=== PATIENT | female | born 1970 | race African-American/Black ===

== ENCOUNTER 2018-07-19 14:57 | Observation (INO) ==
[2018-07-19 18:08] LABS: Basophils % 0.4 % (0.0-0.8); Eosinophils # 0.1 10*3/uL (0.0-0.87); Eosinophils % 0.9 % (0.00-10.9); Hematocrit 46.3 VOL% (35.7-47.0); Hemoglobin 15.8 GM/DL (12.0-16.0); Immature Granulocytes % 0.5 %; Immature Granulocytes Absolute 0.03 #; Lymphocytes # 1.9 10*3/uL (1.4-4.0); Mean Corpuscular HGB Conc 34.1 GM/DL (32-36); Mean Corpuscular Volume 88.2 FL (87-102); Mean Platelet Volume 9.7 FL (9.6-12.0); Monocytes % 12.3 % (1.7-12.7); Neutrophils % 51.9 % (38.7-73.9); Platelet Count 210 T/CUMM (130-400); Red Blood Count 5.25 MC/CUMM (3.8-5.5); Red Cell Distribution Width 13.7 % (9.3-17.3); White Blood Count 5.6 T/CUMM (4-12)
[2018-07-19] MEDS ORDERED: LABETALOL 20 MG/4 ML SYRINGE IV STA ×2 (18:21→19:40)
[2018-07-19] MEDS ORDERED: ASPIRIN 325 MG TABLET PO STA (18:21)
[2018-07-19 18:22] LABS: PT Patient Result 11.2 SECS
[2018-07-19 18:40] LABS: Alanine Aminotransferase 64 U/L (13-56); Albumin 3.5 G/DL (3.4-5.0); Alkaline Phosphatase 117 U/L (45-117); Aspartate Amino Transferase 82 U/L (0-37); Blood Urea Nitrogen 3 MG/DL (7-18); Calcium 9.4 MG/DL (8.5-10.1); Glucose 313 MG/DL (74-106); Osmolality,Calculated 285.5 MOS/KG (273-304); Total Protein 8.2 G/DL (6.4-8.3); Troponin I < 0.015 NG/ML (0.00-0.045)
[2018-07-19 19:32] LABS: Apearance,Urine CLEAR (Clear); Bilirubin,Urine Negative (Negative); Blood, Urine Negative (Negative); Glucose,Urine (UA) >=500 mg/dL (Negative); Ketones,Urine 5 mg/dL (Negative); Nitrite,Urine Negative (Negative); Protein,Urine Negative; RBC,Urine 3 /HPF (0-4); Squamous Epithelial Cell,Urine Occasional /HPF (0-10); Urine Color Yellow (Yellow); Urine Specific Gravity 1.038 (1.001-1.035); Urine Urobilinogen < 2.0 EU/DL (0.2-1.0); WBC,Urine 2 /HPF (0-6)
[2018-07-19 19:39] LABS: Barbiturates Screen,Urine Negative (Negative); Benzodiazepines Screen,Urine Negative (Negative); Cannabinoid Screen,Urine Negative (Negative); Opiate Screen,Urine Positive (Negative); Phencyclidine Screen,Urine Negative (Negative)
[2018-07-19] MEDS ORDERED: MAGNESIUM SULF RIDER 2 GM in PREMIX 1 EACH IV STA (19:57)
[2018-07-19] MEDS ORDERED: guaiFENesin/DM ER 600-30 MG TABLET PO PRN (20:42)
[2018-07-19] MEDS ORDERED: NICOTINE 21 MG/24 HR PATCH TRANSDERM PRN (20:42)
[2018-07-19] MEDS ORDERED: GLUCAGON 1 MG VIAL IM PRN (20:42)
[2018-07-19] MEDS ORDERED: ONDANSETRON 4 MG/2 ML VIAL IV PRN (20:42)
[2018-07-19] MEDS ORDERED: diphenhydrAMINE CAP 25 MG CAPSULE PO PRN (20:42)
[2018-07-19] MEDS ORDERED: BISACODYL 5 MG TABLET PO PRN (20:42)
[2018-07-19] MEDS ORDERED: DEXTROSE 50% 25 GM/50 ML SYRINGE IV PRN (20:42)
[2018-07-19] MEDS ORDERED: PROMETHAZINE 25 MG/1 ML VIAL IM PRN (20:42)
[2018-07-19] MEDS ORDERED: MORPHINE 4 MG/1 ML VIAL IV PRN (20:42)
[2018-07-19] MEDS ORDERED: traZODone 50 MG TABLET PO PRN (20:42)
[2018-07-19] MEDS ORDERED: ACETAMINOPHEN 325 MG TABLET PO PRN (20:42)
[2018-07-19] MEDS ORDERED: MECLIZINE 25 MG TABLET PO PRN (20:47)
[2018-07-19] MEDS ORDERED: MAGNESIUM SULF RIDER 4 GM in PREMIX 1 EACH IV PRN (20:57)
[2018-07-19] MEDS ORDERED: METOPROLOL TARTRATE 5 MG/5 ML VIAL IV STA (20:57)
[2018-07-19] MEDS ORDERED: MAGNESIUM SULF RIDER 2 GM in PREMIX 1 EACH IV PRN (20:57)
[2018-07-19] MEDS ORDERED: METOPROLOL TARTRATE 5 MG/5 ML VIAL IV ONE ×2 (21:20)
[2018-07-19 21:31] LABS: Risk Ratio 4.15; Thyroid Stimulating Hormone 0.447 uIU/ml (0.358-3.74); VLDL CHOLESTEROL 39.4 MG/DL
[2018-07-19 22:04] LABS: Albumin 3.5 G/DL (3.4-5.0); Bilirubin,Direct 0.16 MG/DL (0.0-0.20); Bilirubin,Indirect 0.2 MG/DL (0.0-1.0); Bilirubin,Total 0.4 MG/DL (0.2-1.0); Total Protein 8.3 G/DL (6.4-8.3)
[2018-07-19] MEDS ORDERED: PANTOPRAZOLE 40 MG VIAL IV ONE (22:22)
[2018-07-19] MEDS: ENOXAPARIN 40 MG/0.4 ML SYRINGE SUBCUT SCH (22:54)
[2018-07-19] MEDS: ATORVASTATIN 40 MG TABLET PO SCH (22:54)
[2018-07-19] MEDS: hydrALAZINE 20 MG/1 ML VIAL IV PRN (23:00)
[2018-07-20 04:52] LABS: Basophils % 0.6 % (0.0-0.8); Eosinophils % 0.6 % (0.00-10.9); Hematocrit 41.3 VOL% (35.7-47.0); Hemoglobin 14.6 GM/DL (12.0-16.0); Immature Granulocytes % 0.4 %; Immature Granulocytes Absolute 0.02 #; Lymphocytes % 41.1 % (21.3-54.2); Mean Corpuscular HGB Conc 35.4 GM/DL (32-36); Mean Corpuscular Volume 87.9 FL (87-102); Mean Platelet Volume 10.6 FL (9.6-12.0); Monocytes % 14.1 % (1.7-12.7); Neutrophils % 43.2 % (38.7-73.9); Platelet Count 196 T/CUMM (130-400); Red Cell Distribution Width 13.4 % (9.3-17.3); White Blood Count 4.8 T/CUMM (4-12)
[2018-07-20] MEDS: INSULIN REGULAR 100 UNIT/ML SUBCUT SCH ×4 (05:04→17:31)
[2018-07-20 05:18] LABS: Albumin 2.8 G/DL (3.4-5.0); Bilirubin,Total 0.8 MG/DL (0.2-1.0); Calcium 8.6 MG/DL (8.5-10.1); Osmolality,Calculated 287.7 MOS/KG (273-304); Total Protein 6.9 G/DL (6.4-8.3)
[2018-07-20] MEDS: POTASSIUM CHLORIDE 20 MEQ TABLET PO PRN ×3 (08:01→14:55)
[2018-07-20] MEDS: PANTOPRAZOLE 40 MG TABLET PO SCH (09:10)
[2018-07-20] MEDS: ASPIRIN 325 MG TABLET PO SCH (09:10)
[2018-07-20] MEDS: hydrALAZINE 20 MG/1 ML VIAL IV PRN ×2 (09:32→12:45)
[2018-07-20] MEDS ORDERED: sitaGLIPtin 25 MG TABLET PO SCH (12:16)
[2018-07-20] MEDS ORDERED: METOPROLOL TARTRATE 25 MG TABLET PO ONE (13:43)
[2018-07-20] MEDS ORDERED: LISINOPRIL 20 MG TABLET PO SCH (14:00)
[2018-07-20 14:17] LABS: Troponin I < 0.015 NG/ML (0.00-0.045)
[2018-07-20] MEDS ORDERED: hydroCHLOROthiazide 12.5 MG CAPSULE PO SCH (14:35)
[2018-07-20] MEDS: SPIRONOLACTONE 25 MG TABLET PO SCH ×2 (14:53→21:10)
[2018-07-20] MEDS: FLUCONAZOLE 200 MG TABLET PO SCH (14:55)
[2018-07-20 15:17] LABS: Hepatitis B Core IgM Quant < 0.05 Index; Hepatitis B Surface Ag Quant < 0.10 Index; Hepatitis B Surface Ag Result Negative (Negative); Hepatitis C Virus Ab Quant 0.05 Index; Hepatitis C Virus Ab Result Negative (Negative)
[2018-07-20] MEDS: NYSTATIN CREAM 15 GM TUBE TOP SCH ×2 (16:14→21:10)
[2018-07-20 16:32] LABS: Troponin I < 0.015 NG/ML (0.00-0.045)
[2018-07-20] MEDS: glipiZIDE 5 MG TABLET PO SCH (17:30)
[2018-07-20] MEDS: metFORMIN 500 MG TABLET PO SCH (17:30)
[2018-07-20] MEDS: ENOXAPARIN 40 MG/0.4 ML SYRINGE SUBCUT SCH (21:10)
[2018-07-20] MEDS: ATORVASTATIN 40 MG TABLET PO SCH (21:10)
[2018-07-21] MEDS: INSULIN REGULAR 100 UNIT/ML SUBCUT SCH ×3 (00:26→11:48)
[2018-07-21 04:53] LABS: Basophils % 0.4 % (0.0-0.8); Eosinophils # 0.1 10*3/uL (0.0-0.87); Hematocrit 43.4 VOL% (35.7-47.0); Hemoglobin 14.4 GM/DL (12.0-16.0); Immature Granulocytes % 0.4 %; Immature Granulocytes Absolute 0.02 #; Mean Corpuscular HGB Conc 33.2 GM/DL (32-36); Mean Corpuscular Volume 90.4 FL (87-102); Monocytes % 11.4 % (1.7-12.7); Neutrophils % 48.8 % (38.7-73.9); Platelet Count 197 T/CUMM (130-400); Red Cell Distribution Width 13.6 % (9.3-17.3); White Blood Count 5.2 T/CUMM (4-12)
[2018-07-21 05:24] LABS: Calcium 8.6 MG/DL (8.5-10.1); Osmolality,Calculated 273.8 MOS/KG (273-304)
[2018-07-21] MEDS: POTASSIUM CHLORIDE 20 MEQ TABLET PO PRN (07:05)
[2018-07-21] MEDS: metFORMIN 500 MG TABLET PO SCH (07:55)
[2018-07-21] MEDS: POTASSIUM CHLORIDE 20 MEQ TABLET PO SCH ×2 (07:56→10:53)
[2018-07-21] MEDS: glipiZIDE 5 MG TABLET PO SCH (07:56)
[2018-07-21] MEDS: PANTOPRAZOLE 40 MG TABLET PO SCH (08:00)
[2018-07-21] MEDS: FLUCONAZOLE 200 MG TABLET PO SCH (08:00)
[2018-07-21] MEDS: ASPIRIN 325 MG TABLET PO SCH (08:00)
[2018-07-21] MEDS: SPIRONOLACTONE 25 MG TABLET PO SCH (08:00)
[2018-07-21] MEDS: NYSTATIN CREAM 15 GM TUBE TOP SCH (08:01)
[2018-07-21] MEDS ORDERED: METOPROLOL TARTRATE 25 MG TABLET PO SCH (09:00)
[2018-07-21 12:44] VITALS: BP 136/74
[2018-07-21] MEDS ORDERED: LISINOPRIL 20 MG TABLET PO SCH (13:30)
== END 2018-07-21 16:02 | disposition home or self-care (01) ==
LOC: N.ED 14:57 → N.EDINP 14:57 → SUATTDRO 20:42 → N.TELEN 21:22
PROVIDERS: ADMIT Internal Medicine; ATTEND Internal Medicine Cardiovascular Disease

== ENCOUNTER 2018-10-26 19:35 | Observation (INO) ==
[2018-10-26] MEDS ORDERED: hydrALAZINE 20 MG/1 ML VIAL IV STA ×2 (19:59→21:20)
[2018-10-26 20:11] LABS: Basophils % 0.4 % (0.0-0.8); Eosinophils % 0.4 % (0.00-10.9); Hematocrit 44.5 VOL% (35.7-47.0); Hemoglobin 15.4 GM/DL (12.0-16.0); Immature Granulocytes % 0.4 %; Immature Granulocytes Absolute 0.02 #; Lymphocytes # 1.7 10*3/uL (1.4-4.0); Lymphocytes % 31.2 % (21.3-54.2); Mean Corpuscular HGB Conc 34.6 GM/DL (32-36); Mean Corpuscular Volume 87.6 FL (87-102); Mean Platelet Volume 9.5 FL (9.6-12.0); Monocytes % 10.1 % (1.7-12.7); Neutrophils % 57.5 % (38.7-73.9); Platelet Count 223 T/CUMM (130-400); Red Blood Count 5.08 MC/CUMM (3.8-5.5); Red Cell Distribution Width 14.5 % (9.3-17.3); White Blood Count 5.5 T/CUMM (4-12)
[2018-10-26 20:27] LABS: Alanine Aminotransferase 133 U/L (13-56); Alkaline Phosphatase 117 U/L (45-117); Aspartate Amino Transferase 170 U/L (0-37); Blood Urea Nitrogen 7 MG/DL (7-18); Calcium 8.3 MG/DL (8.5-10.1); Glucose 244 MG/DL (74-106); Osmolality,Calculated 284.4 MOS/KG (273-304); Total Protein 7.7 G/DL (6.4-8.3); Troponin I < 0.015 NG/ML (0.00-0.045)
[2018-10-26 20:48] LABS: Apearance,Urine Slightly Hazy (Clear); Bilirubin,Urine Negative (Negative); Blood, Urine Negative (Negative); Glucose,Urine (UA) >=500 mg/dL (Negative); Ketones,Urine 80 mg/dL (Negative); Mucus,Urine Many /LPF (Occasional); Nitrite,Urine Negative (Negative); Protein,Urine 30 MG/DL; RBC,Urine 5 /HPF (0-4); Squamous Epithelial Cell,Urine Occasional /HPF (0-10); Urine Specific Gravity 1.031 (1.001-1.035); WBC,Urine 16 /HPF (0-6)
[2018-10-26 20:49] LABS: Urine Color Dark yellow (Yellow)
[2018-10-26 20:53] LABS: Barbiturates Screen,Urine Negative (Negative); Benzodiazepines Screen,Urine Negative (Negative); Cannabinoid Screen,Urine Negative (Negative); Opiate Screen,Urine Positive (Negative); Phencyclidine Screen,Urine Negative (Negative)
[2018-10-26] MEDS ORDERED: SODIUM CHLORIDE 0.9% 1,000 ML IV STA (21:28)
[2018-10-26] MEDS ORDERED: MAGNESIUM SULF RIDER 2 GM in PREMIX 1 EACH IV STA (21:28)
[2018-10-26] MEDS ORDERED: cefTRIAXone 1,000 MG in SODIUM CHLORIDE 0.9% 100 ML IV STA (21:29)
[2018-10-26] MEDS ORDERED: traZODone 50 MG TABLET PO PRN (21:54)
[2018-10-26] MEDS ORDERED: ONDANSETRON 4 MG/2 ML VIAL IV PRN (21:54)
[2018-10-26] MEDS ORDERED: GLUCAGON 1 MG VIAL IM PRN (22:11)
[2018-10-26] MEDS ORDERED: DEXTROSE 50% 25 GM/50 ML VIAL IV PRN (22:11)
[2018-10-27] MEDS: ACETAMINOPHEN 325 MG TABLET PO PRN ×3 (00:19→14:39)
[2018-10-27] MEDS: SODIUM CHLOR 0.9% KCL 40 MEQ 40 MEQ/1,000 ML BAG IV SCH ×3 (00:20→17:18)
[2018-10-27] MEDS: DILTIAZEM 60 MG TABLET PO SCH ×3 (00:30→22:17)
[2018-10-27 01:27] LABS: Calcium 8.3 MG/DL (8.5-10.1); Osmolality,Calculated 284.4 MOS/KG (273-304)
[2018-10-27 06:35] LABS: Basophils % 0.6 % (0.0-0.8); Eosinophils % 0.6 % (0.00-10.9); Hemoglobin 13.9 GM/DL (12.0-16.0); Immature Granulocytes % 0.9 %; Immature Granulocytes Absolute 0.05 #; Lymphocytes # 1.9 10*3/uL (1.4-4.0); Lymphocytes % 35.9 % (21.3-54.2); Mean Corpuscular HGB Conc 33.9 GM/DL (32-36); Mean Corpuscular Volume 87.8 FL (87-102); Mean Platelet Volume 9.5 FL (9.6-12.0); Monocytes % 11.8 % (1.7-12.7); Neutrophils % 50.2 % (38.7-73.9); Platelet Count 212 T/CUMM (130-400); Red Blood Count 4.67 MC/CUMM (3.8-5.5); Red Cell Distribution Width 14.6 % (9.3-17.3); White Blood Count 5.4 T/CUMM (4-12)
[2018-10-27] MEDS: ALUMINUM/MAGNES/SIMETH MAX STR 30 ML UDCUP PO PRN (09:07)
[2018-10-27] MEDS: PANTOPRAZOLE 40 MG TABLET PO SCH (09:07)
[2018-10-27] MEDS: ENOXAPARIN 40 MG/0.4 ML SYRINGE SUBCUT SCH (09:07)
[2018-10-27] MEDS: LOSARTAN 25 MG TABLET PO SCH (09:07)
[2018-10-27] MEDS: MAGNESIUM OXIDE 400 MG TABLET PO SCH ×2 (09:07→21:51)
[2018-10-27] MEDS: THIAMINE 100 MG TABLET PO SCH (09:10)
[2018-10-27] MEDS: INSULIN REGULAR 100 UNIT/ML SUBCUT SCH ×4 (09:10→21:50)
[2018-10-27] MEDS: METOPROLOL TARTRATE 50 MG TABLET PO SCH ×2 (09:10→21:51)
[2018-10-27] MEDS ORDERED: POTASSIUM CHLORIDE 20 MEQ TABLET PO ONE (12:31)
[2018-10-27] MEDS: amLODIPine 10 MG TABLET PO SCH (14:37)
[2018-10-27] MEDS: cefTRIAXone 1,000 MG in SYRINGE 1 EACH IV SCH (21:49)
[2018-10-27] MEDS: LORazepam 2 MG/1 ML VIAL IV PRN (22:13)
[2018-10-28] MEDS: SODIUM CHLOR 0.9% KCL 40 MEQ 40 MEQ/1,000 ML BAG IV SCH ×2 (01:40→09:50)
[2018-10-28 06:18] LABS: Calcium 7.4 MG/DL (8.5-10.1)
[2018-10-28] MEDS: MAGNESIUM OXIDE 400 MG TABLET PO SCH (09:49)
[2018-10-28] MEDS: METOPROLOL TARTRATE 50 MG TABLET PO SCH ×2 (09:49→21:17)
[2018-10-28] MEDS: DILTIAZEM 60 MG TABLET PO SCH ×2 (09:49→21:50)
[2018-10-28] MEDS: LOSARTAN 25 MG TABLET PO SCH (09:49)
[2018-10-28] MEDS: THIAMINE 100 MG TABLET PO SCH (09:49)
[2018-10-28] MEDS: amLODIPine 10 MG TABLET PO SCH (09:49)
[2018-10-28] MEDS: ENOXAPARIN 40 MG/0.4 ML SYRINGE SUBCUT SCH (09:50)
[2018-10-28] MEDS: INSULIN REGULAR 100 UNIT/ML SUBCUT SCH ×4 (09:50→21:50)
[2018-10-28] MEDS: PANTOPRAZOLE 40 MG TABLET PO SCH (09:50)
[2018-10-28] MEDS: LORazepam 2 MG/1 ML VIAL IV PRN ×3 (11:24→23:34)
[2018-10-28] MEDS ORDERED: DEXTROSE 50% 25 GM/50 ML VIAL IV PRN (12:44)
[2018-10-28] MEDS: MECLIZINE 25 MG TABLET PO SCH ×3 (12:58→21:16)
[2018-10-28] MEDS: CHOLESTYRAMINE 4 GM PACK PO SCH (18:37)
[2018-10-28] MEDS: cefTRIAXone 1,000 MG in SYRINGE 1 EACH IV SCH (21:19)
[2018-10-29] MEDS: SODIUM CHLOR 0.9% KCL 40 MEQ 40 MEQ/1,000 ML BAG IV SCH ×4 (01:13→22:55)
[2018-10-29] MEDS: CHOLESTYRAMINE 4 GM PACK PO SCH (08:48)
[2018-10-29] MEDS: amLODIPine 10 MG TABLET PO SCH (08:51)
[2018-10-29] MEDS: THIAMINE 100 MG TABLET PO SCH (08:51)
[2018-10-29] MEDS: INSULIN REGULAR 100 UNIT/ML SUBCUT SCH ×4 (08:51→21:27)
[2018-10-29] MEDS: DILTIAZEM 60 MG TABLET PO SCH ×2 (08:51→20:59)
[2018-10-29] MEDS: ENOXAPARIN 40 MG/0.4 ML SYRINGE SUBCUT SCH (08:51)
[2018-10-29] MEDS: MECLIZINE 25 MG TABLET PO SCH ×4 (08:51→20:59)
[2018-10-29] MEDS: LOSARTAN 25 MG TABLET PO SCH (08:51)
[2018-10-29] MEDS: PANTOPRAZOLE 40 MG TABLET PO SCH (08:52)
[2018-10-29] MEDS: METOPROLOL TARTRATE 50 MG TABLET PO SCH ×2 (09:02→20:59)
[2018-10-29] MEDS: ALUMINUM/MAGNES/SIMETH MAX STR 30 ML UDCUP PO PRN (13:26)
[2018-10-29] MEDS ORDERED: PANTOPRAZOLE 40 MG TABLET PO ONE (19:05)
[2018-10-29] MEDS: cefTRIAXone 1,000 MG in SYRINGE 1 EACH IV SCH (20:59)
[2018-10-30] MEDS: ACETAMINOPHEN 325 MG TABLET PO PRN (00:14)
[2018-10-30] MEDS: LORazepam 2 MG/1 ML VIAL IV PRN (00:15)
[2018-10-30 06:05] LABS: Basophils % 0.2 % (0.0-0.8); Eosinophils # 0.1 10*3/uL (0.0-0.87); Hemoglobin 14.2 GM/DL (12.0-16.0); Immature Granulocytes % 0.5 %; Immature Granulocytes Absolute 0.02 #; Lymphocytes # 1.9 10*3/uL (1.4-4.0); Lymphocytes % 46.8 % (21.3-54.2); Mean Corpuscular HGB Conc 34.6 GM/DL (32-36); Mean Corpuscular Volume 89.3 FL (87-102); Mean Platelet Volume 9.6 FL (9.6-12.0); Monocytes % 10.5 % (1.7-12.7); Platelet Count 208 T/CUMM (130-400); Red Blood Count 4.59 MC/CUMM (3.8-5.5); Red Cell Distribution Width 15.2 % (9.3-17.3); White Blood Count 4.1 T/CUMM (4-12)
[2018-10-30 06:20] LABS: Calcium 8.4 MG/DL (8.5-10.1); Osmolality,Calculated 280.4 MOS/KG (273-304)
[2018-10-30] MEDS: SODIUM CHLOR 0.9% KCL 40 MEQ 40 MEQ/1,000 ML BAG IV SCH ×2 (07:09)
[2018-10-30] MEDS ORDERED: MECLIZINE 25 MG TABLET PO PRN (10:11)
[2018-10-30] MEDS: PANTOPRAZOLE 40 MG TABLET PO SCH (10:53)
[2018-10-30] MEDS: THIAMINE 100 MG TABLET PO SCH (10:53)
[2018-10-30] MEDS: amLODIPine 10 MG TABLET PO SCH (10:53)
[2018-10-30] MEDS: LOSARTAN 25 MG TABLET PO SCH (10:54)
[2018-10-30 11:33] VITALS: BP 117/84
[2018-10-30] MEDS: INSULIN REGULAR 100 UNIT/ML SUBCUT SCH (14:19)
[2018-10-30] MEDS: ENOXAPARIN 40 MG/0.4 ML SYRINGE SUBCUT SCH (14:19)
[2018-10-30] MEDS: METOPROLOL TARTRATE 50 MG TABLET PO SCH (14:20)
[2018-10-30] MEDS: MECLIZINE 25 MG TABLET PO SCH (14:20)
[2018-10-30] MEDS: DILTIAZEM 60 MG TABLET PO SCH (14:20)
[2018-10-30] MEDS: CHOLESTYRAMINE 4 GM PACK PO SCH (14:21)
[2018-10-31] MEDS ORDERED: METOPROLOL SUCCINATE XL 50 MG TABLET PO SCH (09:00)
== END 2018-10-30 14:22 | disposition home or self-care (01) ==
LOC: EDUNIT# → EDBD → N.ED 19:35 → N.EDINP 19:35 → SUPCPDRO 21:54 → N.4E 22:29
PROVIDERS: ADMIT Hospitalist; ATTEND Hospitalist

== ENCOUNTER 2020-12-07 18:53 | Observation (INO) ==
[2020-12-07] MEDS ORDERED: ONDANSETRON 4 MG/2 ML VIAL IV STA (19:17)
[2020-12-07] MEDS ORDERED: ASPIRIN 325 MG TABLET PO STA (19:17)
[2020-12-07] MEDS ORDERED: NITROGLYCERIN 2% OINT 1 INCH/GM PACK TOP STA (19:17)
[2020-12-07] MEDS ORDERED: hydrALAZINE 20 MG/1 ML VIAL IV STA (19:17)
[2020-12-07] MEDS ORDERED: MORPHINE 2 MG/1 ML SYRINGE IV STA (19:17)
[2020-12-07 19:54] LABS: Basophils % 0.6 % (0.0-0.8); Eosinophils # 0.1 10*3/uL (0.0-0.87); Eosinophils % 1.9 % (0.00-10.9); Hematocrit 41.2 VOL% (35.7-47.0); Hemoglobin 14.8 GM/DL (12.0-16.0); Immature Granulocytes % 0.3 %; Immature Granulocytes Absolute 0.02 #; Lymphocytes % 30.9 % (21.3-54.2); Mean Corpuscular HGB Conc 35.9 GM/DL (32-36); Mean Corpuscular Volume 87.5 FL (87-102); Mean Platelet Volume 9.3 FL (9.6-12.0); Monocytes % 9.1 % (1.7-12.7); Neutrophils % 57.2 % (38.7-73.9); Platelet Count 231 T/CUMM (130-400); Red Blood Count 4.71 MC/CUMM (3.8-5.5); Red Cell Distribution Width 13.6 % (9.3-17.3); White Blood Count 6.5 T/CUMM (4-12)
[2020-12-07 20:04] LABS: PT Patient Result 11.2 SECS (10.5-12.0)
[2020-12-07 20:12] LABS: Albumin 3.6 G/DL (3.4-5.0); Bilirubin,Total 0.4 MG/DL (0.20-1.00); Calcium 9.4 MG/DL (8.5-10.1); Osmolality,Calculated 277.7 MOS/KG (273-304); Potassium 3.4 MMOL/L (3.5-5.1); Total Protein 8.4 G/DL (6.4-8.2)
[2020-12-07] MEDS ORDERED: MAGNESIUM SULF RIDER 2 GM/50 ML PREMIX IV STA (20:42)
[2020-12-07] MEDS ORDERED: POTASSIUM CHLORIDE 20 MEQ TABLET PO STA (20:42)
[2020-12-07] MEDS ORDERED: DEXTROSE 50% 25 GM/50 ML VIAL IV PRN (20:53)
[2020-12-07] MEDS ORDERED: hydrALAZINE 20 MG/1 ML VIAL IV PRN (20:53)
[2020-12-07] MEDS ORDERED: ONDANSETRON 4 MG/2 ML VIAL IV PRN (20:53)
[2020-12-07] MEDS ORDERED: GLUCAGON 1 MG VIAL IM PRN (20:53)
[2020-12-07 20:56] LABS: Bacteria,Urine Occasional /HPF (Few); Bilirubin,Urine Negative (Negative); Blood, Urine Negative (Negative); Glucose,Urine (UA) Negative (Negative); Hyaline Casts,Urine 1 /LPF (0-3); Ketones,Urine 20 mg/dL (Negative); Mucus,Urine Occasional /LPF (Occasional); Nitrite,Urine Negative (Negative); Protein,Urine Negative; RBC,Urine 2 /HPF (0-4); Squamous Epithelial Cell,Urine Occasional /HPF (0-10); Urine Appearance CLEAR (Clear); Urine Color Yellow (Yellow); Urine Specific Gravity 1.012 (1.001-1.035); Urine Urobilinogen < 2.0 EU/DL (0.2-1.0)
[2020-12-07 21:17] LABS: Barbiturates Screen,Urine Negative (Negative); Benzodiazepines Screen,Urine Negative (Negative); Cannabinoid Screen,Urine Negative (Negative); Opiate Screen,Urine Positive (Negative); Phencyclidine Screen,Urine Negative (Negative)
[2020-12-07] MEDS ORDERED: LABETALOL 20 MG/4 ML SYRINGE IV PRN (21:49)
[2020-12-07] MEDS: ENOXAPARIN 40 MG/0.4 ML SYRINGE SUBCUT SCH (21:52)
[2020-12-07] MEDS: INSULIN REGULAR 100 UNIT/ML SUBCUT SCH (21:52)
[2020-12-07 22:28] LABS: Hepatitis B Core IgM Quant 0.09 Index; Hepatitis B Surface Ag Quant 0.23 Index; Hepatitis B Surface Ag Result Non-Reactive (NonReactive); Hepatitis C Virus Ab Quant 0.04 Index; Hepatitis C Virus Ab Result Non-Reactive (NonReactive)
[2020-12-07] MEDS: NITROGLYCERIN 2% OINT 1 INCH/GM PACK TOP SCH (23:26)
[2020-12-07] MEDS: MORPHINE 2 MG/1 ML SYRINGE IV PRN (23:27)
[2020-12-08] MEDS: MORPHINE 2 MG/1 ML SYRINGE IV PRN ×3 (04:09→23:43)
[2020-12-08] MEDS: NITROGLYCERIN 2% OINT 1 INCH/GM PACK TOP SCH (06:12)
[2020-12-08 07:32] LABS: Basophils % 0.4 % (0.0-0.8); Eosinophils % 0.8 % (0.00-10.9); Hematocrit 37.3 VOL% (35.7-47.0); Hemoglobin 13.2 GM/DL (12.0-16.0); Immature Granulocytes % 0.4 %; Immature Granulocytes Absolute 0.02 #; Lymphocytes # 1.5 10*3/uL (1.4-4.0); Lymphocytes % 30.6 % (21.3-54.2); Mean Corpuscular HGB Conc 35.4 GM/DL (32-36); Mean Corpuscular Volume 88.8 FL (87-102); Mean Platelet Volume 9.5 FL (9.6-12.0); Monocytes % 14.8 % (1.7-12.7); Platelet Count 201 T/CUMM (130-400); Red Cell Distribution Width 13.7 % (9.3-17.3); White Blood Count 4.8 T/CUMM (4-12)
[2020-12-08 07:47] LABS: Albumin 3.1 G/DL (3.4-5.0); Bilirubin,Total 0.5 MG/DL (0.20-1.00); Calcium 8.9 MG/DL (8.5-10.1); Osmolality,Calculated 276.7 MOS/KG (273-304); Potassium 3.3 MMOL/L (3.5-5.1); Total Protein 7.6 G/DL (6.4-8.2)
[2020-12-08] MEDS: INSULIN REGULAR 100 UNIT/ML SUBCUT SCH ×4 (08:38→21:11)
[2020-12-08] MEDS ORDERED: POTASSIUM CHLORIDE 20 MEQ TABLET PO ONE (08:52)
[2020-12-08] MEDS ORDERED: KETOROLAC 30 MG/1 ML VIAL IV ONE (09:12)
[2020-12-08] MEDS: MECLIZINE 25 MG TABLET PO SCH ×3 (09:39→21:11)
[2020-12-08] MEDS: PANTOPRAZOLE 40 MG TABLET PO SCH (09:39)
[2020-12-08] MEDS ORDERED: MAGNESIUM SULF RIDER 4 GM/100 ML PREMIX IV PRN (10:12)
[2020-12-08] MEDS ORDERED: MAGNESIUM SULF RIDER 2 GM/50 ML PREMIX IV PRN (10:12)
[2020-12-08] MEDS: METOPROLOL TARTRATE 50 MG TABLET PO SCH ×2 (10:22→21:11)
[2020-12-08] MEDS: ASPIRIN EC 81 MG TABLET PO SCH (10:22)
[2020-12-08] MEDS ORDERED: DEXTROSE 50% 25 GM/50 ML VIAL IV PRN (10:35)
[2020-12-08] MEDS ORDERED: GLUCAGON 1 MG VIAL IM PRN (10:35)
[2020-12-08 11:02] LABS: Risk Ratio 4.37; VLDL Cholesterol 46.4 MG/DL
[2020-12-08] MEDS ORDERED: METOPROLOL TARTRATE 50 MG TABLET PO SCH (21:00)
[2020-12-08] MEDS: ENOXAPARIN 40 MG/0.4 ML SYRINGE SUBCUT SCH (21:12)
[2020-12-09] MEDS: INSULIN REGULAR 100 UNIT/ML SUBCUT SCH ×2 (08:51→12:24)
[2020-12-09] MEDS: ASPIRIN EC 81 MG TABLET PO SCH (08:52)
[2020-12-09] MEDS: PANTOPRAZOLE 40 MG TABLET PO SCH (08:52)
[2020-12-09] MEDS: MECLIZINE 25 MG TABLET PO SCH (08:52)
[2020-12-09 08:54] LABS: Calcium 8.8 MG/DL (8.5-10.1); Osmolality,Calculated 279.5 MOS/KG (273-304); Potassium 3.6 MMOL/L (3.5-5.1)
[2020-12-09] MEDS ORDERED: PANTOPRAZOLE 40 MG TABLET PO SCH (09:00)
[2020-12-09] MEDS ORDERED: ASPIRIN EC 81 MG TABLET PO SCH (09:00)
[2020-12-09] MEDS ORDERED: METOPROLOL SUCCINATE XL 100 MG TABLET PO SCH (09:00)
[2020-12-09] MEDS ORDERED: ACETAMINOPHEN 325 MG TABLET PO ONE (10:33)
[2020-12-09 12:25] VITALS: BP 145/96
== END 2020-12-09 12:36 | disposition home or self-care (01) ==
LOC: EDBD → EDUNIT# → N.ED 18:53 → N.EDINP 18:53 → N.TELES 22:41
PROVIDERS: ADMIT Internal Medicine; ATTEND Internal Medicine

== ENCOUNTER 2021-01-11 23:34 | Observation (INO) ==
[2021-01-11] MEDS ORDERED: hydrALAZINE 20 MG/1 ML VIAL IV STA (23:50)
[2021-01-11] MEDS ORDERED: ONDANSETRON 4 MG/2 ML VIAL IV STA (23:50)
[2021-01-12] LABS: Basophils % 0.3 % (0.0-0.8); Eosinophils % 0.5 % (0.00-10.9); Hematocrit 41.9 VOL% (35.7-47.0); Hemoglobin 14.8 GM/DL (12.0-16.0); Immature Granulocytes % 0.7 %; Immature Granulocytes Absolute 0.04 #; Lymphocytes # 2.1 10*3/uL (1.4-4.0); Lymphocytes % 36.8 % (21.3-54.2); Mean Corpuscular HGB Conc 35.3 GM/DL (32-36); Mean Corpuscular Volume 86.9 FL (87-102); Mean Platelet Volume 9.1 FL (9.6-12.0); Monocytes % 12.1 % (1.7-12.7); Neutrophils % 49.6 % (38.7-73.9); Platelet Count 219 T/CUMM (130-400); Red Blood Count 4.82 MC/CUMM (3.8-5.5); White Blood Count 5.8 T/CUMM (4-12)
[2021-01-12 00:11] LABS: INR 1.1; PT Patient Result 12.4 SECS (10.5-12.0)
[2021-01-12] MEDS ORDERED: MAGNESIUM SULF RIDER 2 GM/50 ML PREMIX IV STA (00:15)
[2021-01-12 00:16] LABS: Alanine Aminotransferase 77 U/L (13-56); Albumin 3.5 G/DL (3.4-5.0); Alkaline Phosphatase 127 U/L (45-117); Aspartate Amino Transferase 161 U/L (0-37); Blood Urea Nitrogen 5 MG/DL (7-18); Calcium 9.6 MG/DL (8.5-10.1); Carbon Dioxide 26 MMOL/L (21-32); Estimated Glom Filtration Rate 124 ML/MIN; Glucose 267 MG/DL (74-106); Osmolality,Calculated 273.2 MOS/KG (273-304); Sodium 134 MMOL/L (136-145); Total Protein 8.6 G/DL (6.4-8.2)
[2021-01-12] MEDS ORDERED: POTASSIUM CHLORIDE 20 MEQ TABLET PO STA (00:21)
[2021-01-12] MEDS ORDERED: LABETALOL 20 MG/4 ML SYRINGE IV STA (00:21)
[2021-01-12] MEDS ORDERED: niCARdipine INJ 25 MG in SODIUM CHLORIDE 0.9% 240 ML IV PRN (00:21)
[2021-01-12] MEDS ORDERED: niCARdipine 25 MG/10 ML VIAL IV ONE (00:31)
[2021-01-12 00:46] LABS: Barbiturates Screen,Urine Negative (Negative); Benzodiazepines Screen,Urine Negative (Negative); Cannabinoid Screen,Urine Negative (Negative); Opiate Screen,Urine Negative (Negative); Phencyclidine Screen,Urine Negative (Negative)
[2021-01-12 00:55] LABS: Bilirubin,Urine Negative (Negative); Blood, Urine Negative (Negative); Glucose,Urine (UA) >=500 mg/dL (Negative); Hyaline Casts,Urine 3 /LPF (0-3); Ketones,Urine 5 mg/dL (Negative); Mucus,Urine Few /LPF (Occasional); Nitrite,Urine Negative (Negative); Protein,Urine 30 MG/DL; RBC,Urine 7 /HPF (0-4); Squamous Epithelial Cell,Urine Moderate /HPF (0-10); Trichomonas,Urine Occasional /HPF (<1); Urine Appearance Slightly Hazy (Clear); Urine Color Yellow (Yellow); Urine Specific Gravity 1.025 (1.001-1.035)
[2021-01-12] MEDS ORDERED: ONDANSETRON 4 MG/2 ML VIAL IV STA (00:58)
[2021-01-12] MEDS ORDERED: MORPHINE 2 MG/1 ML SYRINGE IV STA (00:58)
[2021-01-12] MEDS ORDERED: ASPIRIN EC 325 MG TABLET PO STA (01:03)
[2021-01-12] MEDS ORDERED: carvediloL 3.125 MG TABLET PO STA (02:58)
[2021-01-12] MEDS ORDERED: GLUCAGON 1 MG VIAL IM PRN (03:06)
[2021-01-12] MEDS ORDERED: DEXTROSE 50% 25 GM/50 ML VIAL IV PRN (03:06)
[2021-01-12] MEDS ORDERED: ONDANSETRON 4 MG/2 ML VIAL IV PRN (03:06)
[2021-01-12] MEDS: ENOXAPARIN 40 MG/0.4 ML SYRINGE SUBCUT SCH (04:02)
[2021-01-12 04:34] LABS: Basophils % 0.3 % (0.0-0.8); Hematocrit 40.9 VOL% (35.7-47.0); Hemoglobin 14.4 GM/DL (12.0-16.0); Immature Granulocytes % 0.6 %; Immature Granulocytes Absolute 0.04 #; Lymphocytes # 0.9 10*3/uL (1.4-4.0); Lymphocytes % 13.8 % (21.3-54.2); Mean Corpuscular HGB Conc 35.2 GM/DL (32-36); Mean Corpuscular Volume 88.1 FL (87-102); Mean Platelet Volume 9.4 FL (9.6-12.0); Monocytes % 8.3 % (1.7-12.7); NRBC # 0.02 10*3/uL; Platelet Count 232 T/CUMM (130-400); Red Blood Count 4.64 MC/CUMM (3.8-5.5); Red Cell Distribution Width 15.3 % (9.3-17.3); White Blood Count 6.5 T/CUMM (4-12)
[2021-01-12] MEDS ORDERED: hydrALAZINE 20 MG/1 ML VIAL IV PRN (04:56)
[2021-01-12 05:11] LABS: Calcium 9.8 MG/DL (8.5-10.1); Osmolality,Calculated 273.4 MOS/KG (273-304); Potassium 3.6 MMOL/L (3.5-5.1); Risk Ratio 4.14; VLDL Cholesterol 25.4 MG/DL
[2021-01-12] MEDS: INSULIN LISPRO 100 UNIT/ML SUBCUT SCH ×2 (07:46→17:02)
[2021-01-12] MEDS ORDERED: IBUPROFEN 600 MG TABLET PO PRN (08:46)
[2021-01-12] MEDS: ASPIRIN EC 81 MG TABLET PO SCH (08:52)
[2021-01-12] MEDS: PANTOPRAZOLE 40 MG TABLET PO SCH (08:53)
[2021-01-12] MEDS ORDERED: LOSARTAN 50 MG TABLET PO SCH (09:00)
[2021-01-12] MEDS ORDERED: LOSARTAN 25 MG TABLET PO SCH (09:00)
[2021-01-12] MEDS: FLUTICASONE 50 MCG NASAL SPRAY 16 GM BOTTLE BOTH NARES SCH ×2 (10:19→10:46)
[2021-01-12] MEDS: METOPROLOL SUCCINATE XL 100 MG TABLET PO SCH (10:19)
[2021-01-12] MEDS ORDERED: carvediloL 3.125 MG TABLET PO SCH (16:00)
[2021-01-12] MEDS ORDERED: LORazepam 2 MG/1 ML VIAL IV STA (21:21)
[2021-01-12] MEDS: ATORVASTATIN 40 MG TABLET PO SCH (21:40)
[2021-01-12] MEDS ORDERED: LORazepam 2 MG/1 ML VIAL IV ONE (23:49)
[2021-01-13] MEDS: ACETAMINOPHEN 325 MG TABLET PO PRN ×2 (00:51→09:22)
[2021-01-13] MEDS: ENOXAPARIN 40 MG/0.4 ML SYRINGE SUBCUT SCH (03:25)
[2021-01-13] MEDS ORDERED: traZODone 50 MG TABLET PO ONE (03:33)
[2021-01-13] MEDS: ASPIRIN EC 81 MG TABLET PO SCH (09:19)
[2021-01-13] MEDS: LOSARTAN 50 MG TABLET PO SCH (09:19)
[2021-01-13] MEDS: METOPROLOL SUCCINATE XL 100 MG TABLET PO SCH (09:19)
[2021-01-13] MEDS: PANTOPRAZOLE 40 MG TABLET PO SCH (09:19)
[2021-01-13] MEDS: INSULIN LISPRO 100 UNIT/ML SUBCUT SCH ×2 (09:22→16:17)
[2021-01-13] MEDS: FLUTICASONE 50 MCG NASAL SPRAY 16 GM BOTTLE BOTH NARES SCH (09:23)
[2021-01-13] MEDS: amLODIPine 10 MG TABLET PO SCH (11:30)
[2021-01-13] MEDS: BUTALBITAL/ACETAMIN/CAFFEINE 50-325-40 MG TABLET PO PRN ×2 (11:30→15:22)
[2021-01-13] MEDS: TOPIRAMATE 25 MG TABLET PO SCH ×2 (16:54→20:34)
[2021-01-13] MEDS: ATORVASTATIN 40 MG TABLET PO SCH (20:34)
[2021-01-13] MEDS ORDERED: TOPIRAMATE 25 MG TABLET PO SCH (21:00)
[2021-01-13] MEDS ORDERED: traZODone 50 MG TABLET PO PRN (21:23)
[2021-01-14] MEDS: ENOXAPARIN 40 MG/0.4 ML SYRINGE SUBCUT SCH (03:17)
[2021-01-14 05:50] LABS: Calcium 9.4 MG/DL (8.5-10.1); Osmolality,Calculated 279.5 MOS/KG (273-304); Potassium 3.2 MMOL/L (3.5-5.1)
[2021-01-14] MEDS ORDERED: POTASSIUM CHLORIDE 20 MEQ TABLET PO ONE (07:57)
[2021-01-14 08:53] VITALS: BP 121/72
[2021-01-14] MEDS: PANTOPRAZOLE 40 MG TABLET PO SCH (08:56)
[2021-01-14] MEDS: TOPIRAMATE 25 MG TABLET PO SCH (08:56)
[2021-01-14] MEDS: LOSARTAN 50 MG TABLET PO SCH (08:57)
[2021-01-14] MEDS: amLODIPine 10 MG TABLET PO SCH (08:57)
[2021-01-14] MEDS: ASPIRIN EC 81 MG TABLET PO SCH (08:57)
[2021-01-14] MEDS: METOPROLOL SUCCINATE XL 100 MG TABLET PO SCH (08:57)
[2021-01-14] MEDS: FLUTICASONE 50 MCG NASAL SPRAY 16 GM BOTTLE BOTH NARES SCH (08:58)
[2021-01-14] MEDS: INSULIN LISPRO 100 UNIT/ML SUBCUT SCH (08:59)
== END 2021-01-14 11:42 | disposition home or self-care (01) ==
LOC: EDBD → EDUNIT# → N.EDINP 23:34 → N.ED 23:34 → SUATTDRO 01-12 03:06 → N.TELEN 01-12 22:46
PROVIDERS: ADMIT Internal Medicine; ATTEND Internal Medicine

== ENCOUNTER 2021-03-03 11:56 | Inpatient (IN) ==
[2021-03-03] MEDS ORDERED: METOPROLOL TARTRATE 5 MG/5 ML VIAL IV STA (13:02)
[2021-03-03] MEDS ORDERED: LORazepam 1 MG TABLET PO STA (13:02)
[2021-03-03] MEDS ORDERED: ASPIRIN 325 MG TABLET PO STA (13:02)
[2021-03-03] MEDS ORDERED: ONDANSETRON 4 MG/2 ML VIAL IV STA (13:02)
[2021-03-03] MEDS ORDERED: THIAMINE INJ 100 MG, FOLIC ACID INJ 1 MG, MAGNESIUM SULF INJ 2 GM, MULTIVITAMIN INJ 10 ... IV ONE (13:04)
[2021-03-03 13:22] LABS: Basophils % 0.4 % (0.0-0.8); Eosinophils # 0.1 10*3/uL (0.0-0.87); Eosinophils % 0.7 % (0.00-10.9); Hematocrit 42.9 VOL% (35.7-47.0); Hemoglobin 14.8 GM/DL (12.0-16.0); Immature Granulocytes % 0.7 %; Immature Granulocytes Absolute 0.05 #; Lymphocytes # 3.1 10*3/uL (1.4-4.0); Lymphocytes % 45.8 % (21.3-54.2); Mean Corpuscular HGB Conc 34.5 GM/DL (32-36); Mean Platelet Volume 9.4 FL (9.6-12.0); Monocytes % 13.3 % (1.7-12.7); NRBC # 0.03 10*3/uL; Neutrophils % 39.1 % (38.7-73.9); Platelet Count 253 T/CUMM (130-400); Red Blood Count 4.99 MC/CUMM (3.8-5.5); Red Cell Distribution Width 14.9 % (9.3-17.3); White Blood Count 6.9 T/CUMM (4-12)
[2021-03-03 13:39] LABS: INR 1.1; Partial Thromboplastin Time 24.5 SECS (23.8-32.1)
[2021-03-03] MEDS ORDERED: MAGNESIUM SULF IV ONE (14:00)
[2021-03-03] MEDS ORDERED: THIAMINE IV ONE (14:00)
[2021-03-03] MEDS ORDERED: FOLIC ACID 1 MG TABLET PO ONE (14:00)
[2021-03-03] MEDS ORDERED: [UNRECOGNIZED DRUG - OTHER] IV ONE (14:00)
[2021-03-03] MEDS ORDERED: MULTIVITAMIN IV ONE (14:00)
[2021-03-03 14:24] LABS: Albumin 3.4 G/DL (3.4-5.0); Bilirubin,Total 0.7 MG/DL (0.20-1.00); Calcium 9.3 MG/DL (8.5-10.1); Osmolality,Calculated 277.2 MOS/KG (273-304); Potassium 2.8 MMOL/L (3.5-5.1)
[2021-03-03 14:26] LABS: Bacteria,Urine Few /HPF (Few); Blood, Urine Negative (Negative); Glucose,Urine (UA) >=500 mg/dL (Negative); Hyaline Casts,Urine 18 /LPF (0-3); Ketones,Urine 20 mg/dL (Negative); Mucus,Urine Many /LPF (Occasional); Nitrite,Urine Negative (Negative); Protein,Urine 100 MG/DL; RBC,Urine 8 /HPF (0-4); Squamous Epithelial Cell,Urine Moderate /HPF (0-10); Urine Appearance Slightly Hazy (Clear); Urine Color Amber (Yellow); Urine Specific Gravity 1.029 (1.001-1.035)
[2021-03-03 14:27] LABS: Bilirubin,Urine Small mg/dL (Negative)
[2021-03-03] MEDS ORDERED: POTASSIUM CHLORIDE 20 MEQ TABLET PO STA (14:35)
[2021-03-03] MEDS ORDERED: cefTRIAXone 1,000 MG in SODIUM CHLORIDE 0.9% 100 ML IV STA (14:35)
[2021-03-03] MEDS ORDERED: POTASSIUM CHLORIDE RIDER 10 MEQ/100 ML PREMIX IV PRN (14:43)
[2021-03-03 14:59] LABS: Barbiturates Screen,Urine Negative (Negative); Benzodiazepines Screen,Urine Negative (Negative); Cannabinoid Screen,Urine Negative (Negative); Opiate Screen,Urine Negative (Negative); Phencyclidine Screen,Urine Negative (Negative)
[2021-03-03] MEDS ORDERED: LABETALOL 20 MG/4 ML SYRINGE IV STA (15:41)
[2021-03-03] MEDS ORDERED: LORazepam 1 MG TABLET PO PRN (15:42)
[2021-03-03] MEDS ORDERED: NICOTINE 21 MG/24 HR PATCH TRANSDERM PRN (15:43)
[2021-03-03] MEDS ORDERED: MORPHINE 2 MG/1 ML SYRINGE IV PRN (15:43)
[2021-03-03] MEDS ORDERED: DEXTROSE 50% 25 GM/50 ML SYRINGE IV PRN ×2 (15:43)
[2021-03-03] MEDS ORDERED: diphenhydrAMINE CAP 25 MG CAPSULE PO PRN (15:43)
[2021-03-03] MEDS ORDERED: ALBUTEROL/IPRATROPIUM 3 ML NEB RESP TX PRN (15:43)
[2021-03-03] MEDS ORDERED: GLUCAGON 1 MG VIAL IM PRN ×2 (15:43)
[2021-03-03] MEDS ORDERED: guaiFENesin/DM ER 600-30 MG TABLET PO PRN (15:43)
[2021-03-03] MEDS ORDERED: hydrALAZINE 20 MG/1 ML VIAL IV PRN (15:43)
[2021-03-03] MEDS ORDERED: ZALEPLON 5 MG CAPSULE PO PRN (15:43)
[2021-03-03] MEDS ORDERED: amLODIPine 5 MG TABLET PO STA (15:46)
[2021-03-03] MEDS: HEPARIN 5,000 UNIT/1 ML VIAL SUBCUT SCH (16:35)
[2021-03-03] MEDS: INSULIN LISPRO 100 UNIT/ML SUBCUT SCH ×2 (17:08→22:32)
[2021-03-03] MEDS: POTASSIUM CHLORIDE 20 MEQ TABLET PO SCH (17:10)
[2021-03-03] MEDS: ATORVASTATIN 40 MG TABLET PO SCH (22:31)
[2021-03-04] MEDS: chlordiazePOXIDE 10 MG CAPSULE PO SCH ×2 (00:54→09:16)
[2021-03-04] MEDS: POTASSIUM CHLORIDE 20 MEQ TABLET PO SCH ×2 (04:54→17:42)
[2021-03-04] MEDS: HEPARIN 5,000 UNIT/1 ML VIAL SUBCUT SCH ×2 (04:54→18:59)
[2021-03-04 06:49] LABS: Immature Granulocytes Absolute 0.03 #; Mean Platelet Volume 9.4 FL (9.6-12.0); Neutrophils % 45.5 % (38.7-73.9); Red Cell Distribution Width 15.2 % (9.3-17.3)
[2021-03-04 06:58] LABS: Basophils % 0.6 % (0.0-0.8); Eosinophils # 0.1 10*3/uL (0.0-0.87); Eosinophils % 1.1 % (0.00-10.9); Hematocrit 36.5 VOL% (35.7-47.0); Immature Granulocytes % 0.6 %; Lymphocytes # 1.8 10*3/uL (1.4-4.0); Lymphocytes % 39.4 % (21.3-54.2); Mean Corpuscular HGB Conc 34.2 GM/DL (32-36); Mean Corpuscular Volume 87.7 FL (87-102); Monocytes % 12.8 % (1.7-12.7); Platelet Count 185 T/CUMM (130-400); Red Blood Count 4.16 MC/CUMM (3.8-5.5); White Blood Count 4.7 T/CUMM (4-12)
[2021-03-04 07:00] LABS: Hemoglobin 12.5 GM/DL (12.0-16.0)
[2021-03-04 07:17] LABS: Calcium 8.5 MG/DL (8.5-10.1); Osmolality,Calculated 279.5 MOS/KG (273-304); Potassium 3.1 MMOL/L (3.5-5.1)
[2021-03-04] MEDS ORDERED: MAGNESIUM SULF RIDER 2 GM/50 ML PREMIX IV ONE (08:35)
[2021-03-04] MEDS ORDERED: amLODIPine 10 MG TABLET PO SCH (09:00)
[2021-03-04] MEDS ORDERED: METOPROLOL SUCCINATE XL 100 MG TABLET PO SCH (09:00)
[2021-03-04] MEDS: INSULIN LISPRO 100 UNIT/ML SUBCUT SCH ×4 (09:15→21:10)
[2021-03-04] MEDS ORDERED: chlordiazePOXIDE 25 MG CAPSULE PO ONE (09:35)
[2021-03-04] MEDS ORDERED: LORazepam 2 MG/1 ML VIAL IV SCH (11:00)
[2021-03-04] MEDS ORDERED: cloNIDine 0.2 MG/24 HR PATCH TRANSDERM SCH (12:30)
[2021-03-04] MEDS: CLORAZEPATE 7.5 MG TABLET PO SCH ×3 (14:11→21:09)
[2021-03-04] MEDS: THIAMINE INJ 100 MG, FOLIC ACID INJ 1 MG, MAGNESIUM SULF INJ 2 GM, MULTIVITAMIN INJ 10 ... IV SCH (14:12)
[2021-03-04] MEDS: VALPROIC ACID INJ 500 MG in SODIUM CHLORIDE 0.9% 100 ML IV SCH (14:12)
[2021-03-04] MEDS ORDERED: GABAPENTIN 300 MG CAPSULE PO SCH (15:00)
[2021-03-04] MEDS ORDERED: chlordiazePOXIDE 25 MG CAPSULE PO SCH (15:00)
[2021-03-04] MEDS ORDERED: cefTRIAXone 1,000 MG in SODIUM CHLORIDE 0.9% 100 ML IV SCH (16:00)
[2021-03-04] MEDS: FONDAPARINUX 2.5 MG/0.5 ML SYRINGE SUBCUT SCH (17:42)
[2021-03-04] MEDS ORDERED: MELATONIN 3 MG TABLET PO SCH (21:00)
[2021-03-04] MEDS: ATORVASTATIN 40 MG TABLET PO SCH (21:08)
[2021-03-04] MEDS: GABAPENTIN 300 MG CAPSULE PO SCH (21:08)
[2021-03-04] MEDS ORDERED: LORazepam 2 MG/1 ML VIAL IV ONE (22:08)
[2021-03-05] MEDS: VALPROIC ACID INJ 500 MG in SODIUM CHLORIDE 0.9% 100 ML IV SCH ×2 (01:36→12:52)
[2021-03-05] MEDS: POTASSIUM CHLORIDE 20 MEQ TABLET PO SCH ×2 (05:26→17:00)
[2021-03-05 07:41] LABS: Basophils % 0.5 % (0.0-0.8); Eosinophils # 0.1 10*3/uL (0.0-0.87); Eosinophils % 2.9 % (0.00-10.9); Hematocrit 36.9 VOL% (35.7-47.0); Hemoglobin 12.6 GM/DL (12.0-16.0); Immature Granulocytes % 0.5 %; Immature Granulocytes Absolute 0.02 #; Lymphocytes # 1.6 10*3/uL (1.4-4.0); Lymphocytes % 42.5 % (21.3-54.2); Mean Corpuscular HGB Conc 34.1 GM/DL (32-36); Mean Corpuscular Volume 89.8 FL (87-102); Mean Platelet Volume 9.5 FL (9.6-12.0); Monocytes % 11.1 % (1.7-12.7); Neutrophils % 42.5 % (38.7-73.9); Platelet Count 181 T/CUMM (130-400); Red Blood Count 4.11 MC/CUMM (3.8-5.5); Red Cell Distribution Width 15.5 % (9.3-17.3); White Blood Count 3.8 T/CUMM (4-12)
[2021-03-05 07:58] LABS: Calcium 8.2 MG/DL (8.5-10.1)
[2021-03-05 08:14] LABS: Eosinophils 2 % (0-10); Hypochromia 1+; Lymphocytes 40 % (20-55); Microcytosis 1+; Platelet Estimate Adequate; Segmented Neutrophils 50 % (50-85); Total Cells Counted 100
[2021-03-05] MEDS: INSULIN LISPRO 100 UNIT/ML SUBCUT SCH ×4 (08:52→21:17)
[2021-03-05] MEDS: DAPAGLIFLOZIN 10 MG TABLET PO SCH (08:53)
[2021-03-05] MEDS: GABAPENTIN 300 MG CAPSULE PO SCH ×3 (08:53→21:16)
[2021-03-05] MEDS: CLORAZEPATE 7.5 MG TABLET PO SCH (08:54)
[2021-03-05] MEDS: CLORAZEPATE 3.75 MG TABLET PO SCH ×3 (12:53→21:16)
[2021-03-05] MEDS: THIAMINE INJ 100 MG, FOLIC ACID INJ 1 MG, MAGNESIUM SULF INJ 2 GM, MULTIVITAMIN INJ 10 ... IV SCH (16:59)
[2021-03-05] MEDS: FONDAPARINUX 2.5 MG/0.5 ML SYRINGE SUBCUT SCH (17:00)
[2021-03-05] MEDS: ONDANSETRON 4 MG/2 ML VIAL IV PRN (19:56)
[2021-03-05] MEDS: LORazepam 2 MG/1 ML VIAL IV PRN (20:15)
[2021-03-05] MEDS ORDERED: MELATONIN 3 MG TABLET PO SCH (21:00)
[2021-03-05] MEDS: ATORVASTATIN 40 MG TABLET PO SCH (21:16)
[2021-03-06] MEDS: VALPROIC ACID INJ 500 MG in SODIUM CHLORIDE 0.9% 100 ML IV SCH ×2 (00:59→16:08)
[2021-03-06 05:11] LABS: Basophils % 0.2 % (0.0-0.8); Eosinophils # 0.2 10*3/uL (0.0-0.87); Eosinophils % 3.8 % (0.00-10.9); Hematocrit 36.8 VOL% (35.7-47.0); Immature Granulocytes % 0.2 %; Immature Granulocytes Absolute 0.01 #; Lymphocytes # 1.7 10*3/uL (1.4-4.0); Lymphocytes % 41.6 % (21.3-54.2); Mean Corpuscular HGB Conc 32.6 GM/DL (32-36); Mean Corpuscular Volume 91.3 FL (87-102); Mean Platelet Volume 9.7 FL (9.6-12.0); Monocytes % 13.4 % (1.7-12.7); Neutrophils % 40.8 % (38.7-73.9); Platelet Count 180 T/CUMM (130-400); Red Blood Count 4.03 MC/CUMM (3.8-5.5); Red Cell Distribution Width 15.4 % (9.3-17.3); White Blood Count 4.2 T/CUMM (4-12)
[2021-03-06 05:40] LABS: Anisocytosis 1+; Band Neutrophils 1 % (0-10); Eosinophils 3 % (0-10); Lymphocytes 41 % (20-55); Macrocytosis Slight; Platelet Estimate Normal; Segmented Neutrophils 43 % (50-85); Target Cells Few; Total Cells Counted 100
[2021-03-06 05:49] LABS: Calcium 8.4 MG/DL (8.5-10.1); Osmolality,Calculated 287.8 MOS/KG (273-304); Potassium 4.3 MMOL/L (3.5-5.1)
[2021-03-06] MEDS: GABAPENTIN 300 MG CAPSULE PO SCH ×2 (11:31→16:07)
[2021-03-06] MEDS: CLORAZEPATE 3.75 MG TABLET PO SCH ×4 (11:31→21:50)
[2021-03-06] MEDS: DAPAGLIFLOZIN 10 MG TABLET PO SCH (11:31)
[2021-03-06] MEDS: INSULIN LISPRO 100 UNIT/ML SUBCUT SCH ×4 (11:34→21:52)
[2021-03-06] MEDS: ACETAMINOPHEN 325 MG TABLET PO PRN (17:08)
[2021-03-06] MEDS ORDERED: QUEtiapine 25 MG TABLET PO SCH (21:00)
[2021-03-06] MEDS: THIAMINE INJ 100 MG, FOLIC ACID INJ 1 MG, MAGNESIUM SULF INJ 2 GM, MULTIVITAMIN INJ 10 ... IV SCH (21:45)
[2021-03-06] MEDS: ATORVASTATIN 40 MG TABLET PO SCH (21:51)
[2021-03-06] MEDS: FONDAPARINUX 2.5 MG/0.5 ML SYRINGE SUBCUT SCH (21:51)
[2021-03-07] MEDS: LORazepam 2 MG/1 ML VIAL IV PRN ×2 (03:44→20:32)
[2021-03-07 06:22] LABS: Basophils % 0.3 % (0.0-0.8); Eosinophils # 0.1 10*3/uL (0.0-0.87); Eosinophils % 3.2 % (0.00-10.9); Hematocrit 36.7 VOL% (35.7-47.0); Hemoglobin 12.2 GM/DL (12.0-16.0); Immature Granulocytes % 0.6 %; Immature Granulocytes Absolute 0.02 #; Lymphocytes # 1.5 10*3/uL (1.4-4.0); Lymphocytes % 44.3 % (21.3-54.2); Mean Corpuscular HGB Conc 33.2 GM/DL (32-36); Mean Corpuscular Volume 89.7 FL (87-102); Mean Platelet Volume 10.6 FL (9.6-12.0); Monocytes % 11.2 % (1.7-12.7); Neutrophils % 40.4 % (38.7-73.9); Platelet Count 190 T/CUMM (130-400); Red Blood Count 4.09 MC/CUMM (3.8-5.5); Red Cell Distribution Width 15.6 % (9.3-17.3); White Blood Count 3.5 T/CUMM (4-12)
[2021-03-07 06:54] LABS: Osmolality,Calculated 287.3 MOS/KG (273-304); Potassium 4.7 MMOL/L (3.5-5.1)
[2021-03-07] MEDS: CLORAZEPATE 3.75 MG TABLET PO SCH ×2 (08:07→12:29)
[2021-03-07] MEDS: DAPAGLIFLOZIN 10 MG TABLET PO SCH (08:07)
[2021-03-07] MEDS: metFORMIN 500 MG TABLET PO SCH ×2 (08:07→16:09)
[2021-03-07] MEDS: INSULIN LISPRO 100 UNIT/ML SUBCUT SCH ×4 (08:07→20:31)
[2021-03-07 08:21] LABS: Platelet Estimate Normal; Polychromasia Slight; Stomatocytes Slight; Target Cells Few
[2021-03-07] MEDS: THIAMINE INJ 100 MG, FOLIC ACID INJ 1 MG, MAGNESIUM SULF INJ 2 GM, MULTIVITAMIN INJ 10 ... IV SCH (13:54)
[2021-03-07] MEDS: LOSARTAN 25 MG TABLET PO SCH (16:09)
[2021-03-07] MEDS: CLORAZEPATE 7.5 MG TABLET PO SCH ×2 (16:09→20:31)
[2021-03-07] MEDS: ATORVASTATIN 40 MG TABLET PO SCH (20:30)
[2021-03-07] MEDS: FONDAPARINUX 2.5 MG/0.5 ML SYRINGE SUBCUT SCH (20:32)
[2021-03-07] MEDS ORDERED: QUEtiapine 25 MG TABLET PO SCH (21:00)
[2021-03-08 05:18] LABS: Basophils % 0.5 % (0.0-0.8); Eosinophils # 0.1 10*3/uL (0.0-0.87); Eosinophils % 3.2 % (0.00-10.9); Hematocrit 38.3 VOL% (35.7-47.0); Hemoglobin 12.8 GM/DL (12.0-16.0); Immature Granulocytes % 0.5 %; Immature Granulocytes Absolute 0.02 #; Lymphocytes # 1.8 10*3/uL (1.4-4.0); Lymphocytes % 43.2 % (21.3-54.2); Mean Corpuscular HGB Conc 33.4 GM/DL (32-36); Mean Corpuscular Volume 89.7 FL (87-102); Mean Platelet Volume 9.9 FL (9.6-12.0); Monocytes % 11.1 % (1.7-12.7); Neutrophils % 41.5 % (38.7-73.9); Platelet Count 209 T/CUMM (130-400); Red Blood Count 4.27 MC/CUMM (3.8-5.5); Red Cell Distribution Width 15.4 % (9.3-17.3); White Blood Count 4.1 T/CUMM (4-12)
[2021-03-08 05:42] LABS: Osmolality,Calculated 278.4 MOS/KG (273-304); Potassium 3.8 MMOL/L (3.5-5.1)
[2021-03-08] MEDS ORDERED: ERGOCALCIFEROL 50,000 UNIT CAPSULE PO ONE (08:47)
[2021-03-08] MEDS: CLORAZEPATE 7.5 MG TABLET PO SCH ×4 (08:55→21:29)
[2021-03-08] MEDS: ASPIRIN EC 81 MG TABLET PO SCH (08:55)
[2021-03-08] MEDS: metFORMIN 500 MG TABLET PO SCH ×2 (08:55→16:51)
[2021-03-08] MEDS: DAPAGLIFLOZIN 10 MG TABLET PO SCH (08:55)
[2021-03-08] MEDS: amLODIPine 10 MG TABLET PO SCH (08:55)
[2021-03-08] MEDS: LOSARTAN 25 MG TABLET PO SCH (08:56)
[2021-03-08] MEDS: sitaGLIPtin 100 MG TABLET PO SCH (08:56)
[2021-03-08] MEDS: CHOLECALCIFEROL 1,000 UNIT TABLET PO SCH (08:56)
[2021-03-08] MEDS: INSULIN LISPRO 100 UNIT/ML SUBCUT SCH ×4 (08:59→21:52)
[2021-03-08] MEDS: LORazepam 2 MG/1 ML VIAL IV PRN (11:35)
[2021-03-08] MEDS: THIAMINE INJ 100 MG, FOLIC ACID INJ 1 MG, MAGNESIUM SULF INJ 2 GM, MULTIVITAMIN INJ 10 ... IV SCH (14:38)
[2021-03-08] MEDS: FONDAPARINUX 2.5 MG/0.5 ML SYRINGE SUBCUT SCH (21:28)
[2021-03-08] MEDS: ATORVASTATIN 40 MG TABLET PO SCH (21:29)
[2021-03-08] MEDS: ACETAMINOPHEN 325 MG TABLET PO PRN (21:30)
[2021-03-08] MEDS: QUEtiapine 25 MG TABLET PO SCH (21:30)
[2021-03-09] MEDS: LORazepam 2 MG/1 ML VIAL IV PRN ×4 (01:39→18:32)
[2021-03-09 06:16] LABS: Basophils % 0.5 % (0.0-0.8); Eosinophils # 0.1 10*3/uL (0.0-0.87); Eosinophils % 2.6 % (0.00-10.9); Hematocrit 40.2 VOL% (35.7-47.0); Hemoglobin 13.7 GM/DL (12.0-16.0); Immature Granulocytes % 0.5 %; Immature Granulocytes Absolute 0.02 #; Lymphocytes # 1.7 10*3/uL (1.4-4.0); Mean Corpuscular HGB Conc 34.1 GM/DL (32-36); Mean Corpuscular Volume 89.1 FL (87-102); Mean Platelet Volume 9.4 FL (9.6-12.0); Monocytes % 12.9 % (1.7-12.7); Neutrophils % 42.5 % (38.7-73.9); Platelet Count 238 T/CUMM (130-400); Red Blood Count 4.51 MC/CUMM (3.8-5.5); Red Cell Distribution Width 15.4 % (9.3-17.3); White Blood Count 4.2 T/CUMM (4-12)
[2021-03-09 06:41] LABS: Calcium 9.2 MG/DL (8.5-10.1); Osmolality,Calculated 282.3 MOS/KG (273-304); Potassium 4.2 MMOL/L (3.5-5.1)
[2021-03-09] MEDS: metFORMIN 500 MG TABLET PO SCH ×2 (08:57→16:16)
[2021-03-09] MEDS: DAPAGLIFLOZIN 10 MG TABLET PO SCH (08:57)
[2021-03-09] MEDS: ASPIRIN EC 81 MG TABLET PO SCH (08:57)
[2021-03-09] MEDS: CLORAZEPATE 7.5 MG TABLET PO SCH ×2 (08:57→12:29)
[2021-03-09] MEDS: LOSARTAN 25 MG TABLET PO SCH (08:57)
[2021-03-09] MEDS: CHOLECALCIFEROL 1,000 UNIT TABLET PO SCH (08:57)
[2021-03-09] MEDS: amLODIPine 10 MG TABLET PO SCH (08:57)
[2021-03-09] MEDS: sitaGLIPtin 100 MG TABLET PO SCH (08:57)
[2021-03-09] MEDS: INSULIN LISPRO 100 UNIT/ML SUBCUT SCH ×4 (08:59→20:46)
[2021-03-09] MEDS: THIAMINE INJ 100 MG, FOLIC ACID INJ 1 MG, MAGNESIUM SULF INJ 2 GM, MULTIVITAMIN INJ 10 ... IV SCH (14:40)
[2021-03-09] MEDS: CLORAZEPATE 3.75 MG TABLET PO SCH ×2 (16:16→20:45)
[2021-03-09] MEDS: ONDANSETRON 4 MG/2 ML VIAL IV PRN (18:32)
[2021-03-09] MEDS: QUEtiapine 25 MG TABLET PO SCH (20:45)
[2021-03-09] MEDS: ATORVASTATIN 40 MG TABLET PO SCH (20:45)
[2021-03-09] MEDS: FONDAPARINUX 2.5 MG/0.5 ML SYRINGE SUBCUT SCH (20:45)
[2021-03-10] MEDS: LORazepam 2 MG/1 ML VIAL IV PRN ×2 (00:17→15:48)
[2021-03-10] MEDS: ACETAMINOPHEN 325 MG TABLET PO PRN ×2 (00:48→15:48)
[2021-03-10 07:01] LABS: Basophils % 0.7 % (0.0-0.8); Eosinophils # 0.1 10*3/uL (0.0-0.87); Eosinophils % 3.2 % (0.00-10.9); Hematocrit 37.7 VOL% (35.7-47.0); Hemoglobin 12.8 GM/DL (12.0-16.0); Immature Granulocytes % 0.7 %; Immature Granulocytes Absolute 0.03 #; Lymphocytes # 1.7 10*3/uL (1.4-4.0); Lymphocytes % 38.3 % (21.3-54.2); Mean Corpuscular Volume 88.9 FL (87-102); Mean Platelet Volume 9.5 FL (9.6-12.0); Monocytes % 15.6 % (1.7-12.7); Neutrophils % 41.5 % (38.7-73.9); Platelet Count 260 T/CUMM (130-400); Red Blood Count 4.24 MC/CUMM (3.8-5.5); Red Cell Distribution Width 15.3 % (9.3-17.3); White Blood Count 4.4 T/CUMM (4-12)
[2021-03-10 07:27] LABS: Eosinophils 2 % (0-10); Hypochromia Slight; Lymphocytes 38 % (20-55); Microcytosis Slight; Platelet Estimate Adequate; Segmented Neutrophils 49 % (50-85); Total Cells Counted 100
[2021-03-10 07:29] LABS: Calcium 9.1 MG/DL (8.5-10.1); Osmolality,Calculated 281.3 MOS/KG (273-304); Potassium 4.1 MMOL/L (3.5-5.1)
[2021-03-10] MEDS ORDERED: ERGOCALCIFEROL 50,000 UNIT CAPSULE PO ONE (07:45)
[2021-03-10] MEDS: CHOLECALCIFEROL 1,000 UNIT TABLET PO SCH (09:07)
[2021-03-10] MEDS: amLODIPine 10 MG TABLET PO SCH (09:07)
[2021-03-10] MEDS: LOSARTAN 25 MG TABLET PO SCH (09:07)
[2021-03-10] MEDS: ASPIRIN EC 81 MG TABLET PO SCH (09:07)
[2021-03-10] MEDS: GLIMEPIRIDE 2 MG TABLET PO SCH (09:07)
[2021-03-10] MEDS: CLORAZEPATE 3.75 MG TABLET PO SCH ×4 (09:07→20:58)
[2021-03-10] MEDS: DAPAGLIFLOZIN 10 MG TABLET PO SCH (09:07)
[2021-03-10] MEDS: sitaGLIPtin 100 MG TABLET PO SCH (09:08)
[2021-03-10] MEDS: metFORMIN 500 MG TABLET PO SCH ×2 (09:08→17:33)
[2021-03-10] MEDS: INSULIN LISPRO 100 UNIT/ML SUBCUT SCH ×4 (09:11→20:58)
[2021-03-10] MEDS: THIAMINE INJ 100 MG, FOLIC ACID INJ 1 MG, MAGNESIUM SULF INJ 2 GM, MULTIVITAMIN INJ 10 ... IV SCH (13:11)
[2021-03-10] MEDS: ATORVASTATIN 40 MG TABLET PO SCH (20:58)
[2021-03-10] MEDS: QUEtiapine 25 MG TABLET PO SCH (20:58)
[2021-03-10] MEDS: FONDAPARINUX 2.5 MG/0.5 ML SYRINGE SUBCUT SCH (20:58)
[2021-03-11] MEDS: INSULIN LISPRO 100 UNIT/ML SUBCUT SCH ×4 (08:21→20:23)
[2021-03-11] MEDS: CLORAZEPATE 3.75 MG TABLET PO SCH ×2 (09:11→20:52)
[2021-03-11] MEDS: sitaGLIPtin 100 MG TABLET PO SCH (09:12)
[2021-03-11] MEDS: CHOLECALCIFEROL 1,000 UNIT TABLET PO SCH (09:12)
[2021-03-11] MEDS: DAPAGLIFLOZIN 10 MG TABLET PO SCH (09:12)
[2021-03-11] MEDS: ASPIRIN EC 81 MG TABLET PO SCH (09:12)
[2021-03-11] MEDS: amLODIPine 10 MG TABLET PO SCH (09:12)
[2021-03-11] MEDS: LOSARTAN 25 MG TABLET PO SCH (09:12)
[2021-03-11] MEDS: GLIMEPIRIDE 2 MG TABLET PO SCH (09:12)
[2021-03-11] MEDS: metFORMIN 500 MG TABLET PO SCH ×2 (09:12→17:36)
[2021-03-11] MEDS: ONDANSETRON 4 MG TABLET PO PRN (15:14)
[2021-03-11] MEDS: ACETAMINOPHEN 325 MG TABLET PO PRN (15:16)
[2021-03-11] MEDS: LOPERAMIDE 2 MG CAPSULE PO PRN (18:06)
[2021-03-11] MEDS: ATORVASTATIN 40 MG TABLET PO SCH (20:52)
[2021-03-11] MEDS: FONDAPARINUX 2.5 MG/0.5 ML SYRINGE SUBCUT SCH (20:52)
[2021-03-11] MEDS ORDERED: QUEtiapine 100 MG TABLET PO SCH (21:00)
[2021-03-11] MEDS ORDERED: risperiDONE 1 MG TABLET PO SCH (21:00)
[2021-03-12 05:44] LABS: Basophils % 0.7 % (0.0-0.8); Eosinophils # 0.1 10*3/uL (0.0-0.87); Hematocrit 38.2 VOL% (35.7-47.0); Hemoglobin 13.1 GM/DL (12.0-16.0); Immature Granulocytes % 0.5 %; Immature Granulocytes Absolute 0.03 #; Lymphocytes # 1.9 10*3/uL (1.4-4.0); Lymphocytes % 34.7 % (21.3-54.2); Mean Corpuscular HGB Conc 34.3 GM/DL (32-36); Mean Corpuscular Volume 88.8 FL (87-102); Mean Platelet Volume 9.2 FL (9.6-12.0); Monocytes % 16.1 % (1.7-12.7); Platelet Count 285 T/CUMM (130-400); White Blood Count 5.5 T/CUMM (4-12)
[2021-03-12 06:05] LABS: Calcium 9.1 MG/DL (8.5-10.1); Osmolality,Calculated 278.4 MOS/KG (273-304); Potassium 3.9 MMOL/L (3.5-5.1)
[2021-03-12 06:07] LABS: Eosinophils 1 % (0-10); Lymphocytes 37 % (20-55); Platelet Estimate Adequate; Segmented Neutrophils 45 % (50-85); Total Cells Counted 100
[2021-03-12 06:08] LABS: Hypochromia 1+; Microcytosis 1+
[2021-03-12] MEDS: INSULIN LISPRO 100 UNIT/ML SUBCUT SCH ×4 (08:06→20:07)
[2021-03-12] MEDS: ASPIRIN EC 81 MG TABLET PO SCH (09:19)
[2021-03-12] MEDS: CHOLECALCIFEROL 1,000 UNIT TABLET PO SCH (09:19)
[2021-03-12] MEDS: metFORMIN 500 MG TABLET PO SCH ×2 (09:20→16:42)
[2021-03-12] MEDS: CLORAZEPATE 3.75 MG TABLET PO SCH ×2 (09:20→20:03)
[2021-03-12] MEDS: GLIMEPIRIDE 2 MG TABLET PO SCH (09:20)
[2021-03-12] MEDS: DAPAGLIFLOZIN 10 MG TABLET PO SCH (09:22)
[2021-03-12] MEDS: amLODIPine 10 MG TABLET PO SCH (09:47)
[2021-03-12] MEDS: LOSARTAN 25 MG TABLET PO SCH (09:47)
[2021-03-12] MEDS: ESCITALOPRAM 10 MG TABLET PO SCH (09:52)
[2021-03-12] MEDS: LOPERAMIDE 2 MG CAPSULE PO PRN ×2 (13:08→20:03)
[2021-03-12] MEDS: carvediloL 3.125 MG TABLET PO SCH (16:42)
[2021-03-12] MEDS: ATORVASTATIN 40 MG TABLET PO SCH (20:03)
[2021-03-12] MEDS: risperiDONE 0.5 MG TABLET PO SCH (20:04)
[2021-03-12] MEDS: FONDAPARINUX 2.5 MG/0.5 ML SYRINGE SUBCUT SCH (20:04)
[2021-03-13 04:00] LABS: Basophils # 0.1 10*3/uL (0.0-0.2); Basophils % 0.8 % (0.0-0.8); Eosinophils # 0.1 10*3/uL (0.0-0.87); Eosinophils % 1.5 % (0.00-10.9); Hematocrit 40.6 VOL% (35.7-47.0); Hemoglobin 13.5 GM/DL (12.0-16.0); Immature Granulocytes % 0.3 %; Immature Granulocytes Absolute 0.02 #; Lymphocytes % 32.2 % (21.3-54.2); Mean Corpuscular HGB Conc 33.3 GM/DL (32-36); Mean Platelet Volume 9.6 FL (9.6-12.0); Monocytes % 15.1 % (1.7-12.7); Neutrophils % 50.1 % (38.7-73.9); Platelet Count 299 T/CUMM (130-400); Red Blood Count 4.56 MC/CUMM (3.8-5.5); Red Cell Distribution Width 14.7 % (9.3-17.3); White Blood Count 6.1 T/CUMM (4-12)
[2021-03-13 04:14] LABS: Calcium 9.3 MG/DL (8.5-10.1); Osmolality,Calculated 277.5 MOS/KG (273-304); Potassium 4.3 MMOL/L (3.5-5.1)
[2021-03-13] MEDS: ONDANSETRON 4 MG TABLET PO PRN (08:53)
[2021-03-13] MEDS: metFORMIN 500 MG TABLET PO SCH (08:54)
[2021-03-13] MEDS: CLORAZEPATE 3.75 MG TABLET PO SCH ×2 (08:54→22:12)
[2021-03-13] MEDS: DAPAGLIFLOZIN 10 MG TABLET PO SCH (08:54)
[2021-03-13] MEDS: CHOLECALCIFEROL 1,000 UNIT TABLET PO SCH (08:54)
[2021-03-13] MEDS: ASPIRIN EC 81 MG TABLET PO SCH (08:54)
[2021-03-13] MEDS: ESCITALOPRAM 10 MG TABLET PO SCH (08:54)
[2021-03-13] MEDS: GLIMEPIRIDE 2 MG TABLET PO SCH (08:54)
[2021-03-13] MEDS: carvediloL 3.125 MG TABLET PO SCH ×2 (08:54→17:09)
[2021-03-13] MEDS: INSULIN LISPRO 100 UNIT/ML SUBCUT SCH ×3 (09:57→16:27)
[2021-03-13] MEDS: CHOLESTYRAMINE 4 GM PACK PO SCH ×2 (12:57→22:13)
[2021-03-13] MEDS: PROMETHAZINE 25 MG/1 ML VIAL IM PRN ×2 (15:26→22:12)
[2021-03-13] MEDS: ATORVASTATIN 40 MG TABLET PO SCH (22:12)
[2021-03-13] MEDS: DULoxetine 20 MG CAPSULE PO SCH (22:12)
[2021-03-13] MEDS: risperiDONE 0.5 MG TABLET PO SCH (22:12)
[2021-03-13] MEDS: FONDAPARINUX 2.5 MG/0.5 ML SYRINGE SUBCUT SCH (22:12)
[2021-03-14 05:53] LABS: Basophils % 0.7 % (0.0-0.8); Eosinophils # 0.1 10*3/uL (0.0-0.87); Eosinophils % 2.2 % (0.00-10.9); Hematocrit 38.8 VOL% (35.7-47.0); Hemoglobin 13.2 GM/DL (12.0-16.0); Immature Granulocytes % 0.4 %; Immature Granulocytes Absolute 0.02 #; Lymphocytes # 2.2 10*3/uL (1.4-4.0); Lymphocytes % 38.6 % (21.3-54.2); Mean Corpuscular Volume 88.4 FL (87-102); Mean Platelet Volume 9.9 FL (9.6-12.0); Monocytes % 15.4 % (1.7-12.7); Neutrophils % 42.7 % (38.7-73.9); Platelet Count 316 T/CUMM (130-400); Red Blood Count 4.39 MC/CUMM (3.8-5.5); Red Cell Distribution Width 14.6 % (9.3-17.3); White Blood Count 5.6 T/CUMM (4-12)
[2021-03-14 06:17] LABS: Calcium 9.4 MG/DL (8.5-10.1); Osmolality,Calculated 274.5 MOS/KG (273-304); Potassium 3.9 MMOL/L (3.5-5.1)
[2021-03-14] MEDS: INSULIN LISPRO 100 UNIT/ML SUBCUT SCH ×4 (07:15→16:35)
[2021-03-14] MEDS: CHOLECALCIFEROL 1,000 UNIT TABLET PO SCH (08:48)
[2021-03-14] MEDS: carvediloL 3.125 MG TABLET PO SCH ×2 (08:48→16:35)
[2021-03-14] MEDS: GLIMEPIRIDE 2 MG TABLET PO SCH (08:48)
[2021-03-14] MEDS: CLORAZEPATE 3.75 MG TABLET PO SCH ×2 (08:48→20:22)
[2021-03-14] MEDS: ASPIRIN EC 81 MG TABLET PO SCH (08:48)
[2021-03-14] MEDS: PROMETHAZINE 25 MG/1 ML VIAL IM PRN ×3 (08:48→22:51)
[2021-03-14] MEDS: DAPAGLIFLOZIN 10 MG TABLET PO SCH (08:56)
[2021-03-14] MEDS: CHOLESTYRAMINE 4 GM PACK PO SCH ×2 (10:05→22:51)
[2021-03-14] MEDS: PANTOPRAZOLE 40 MG TABLET PO SCH (13:29)
[2021-03-14] MEDS: FONDAPARINUX 2.5 MG/0.5 ML SYRINGE SUBCUT SCH (20:22)
[2021-03-14] MEDS: ATORVASTATIN 40 MG TABLET PO SCH (20:22)
[2021-03-14] MEDS: DULoxetine 20 MG CAPSULE PO SCH (20:22)
[2021-03-14] MEDS: risperiDONE 0.5 MG TABLET PO SCH (20:22)
[2021-03-15 05:51] LABS: Basophils # 0.1 10*3/uL (0.0-0.2); Basophils % 0.8 % (0.0-0.8); Eosinophils # 0.1 10*3/uL (0.0-0.87); Eosinophils % 1.9 % (0.00-10.9); Hematocrit 39.2 VOL% (35.7-47.0); Immature Granulocytes % 0.3 %; Immature Granulocytes Absolute 0.02 #; Lymphocytes % 31.5 % (21.3-54.2); Mean Corpuscular HGB Conc 33.2 GM/DL (32-36); Mean Corpuscular Volume 88.5 FL (87-102); Monocytes % 14.5 % (1.7-12.7); Platelet Count 325 T/CUMM (130-400); Red Blood Count 4.43 MC/CUMM (3.8-5.5); Red Cell Distribution Width 14.4 % (9.3-17.3); White Blood Count 6.3 T/CUMM (4-12)
[2021-03-15 06:21] LABS: Calcium 9.9 MG/DL (8.5-10.1); Osmolality,Calculated 274.5 MOS/KG (273-304); Potassium 3.8 MMOL/L (3.5-5.1)
[2021-03-15 06:46] LABS: Calcium 9.7 MG/DL (8.5-10.1); Osmolality,Calculated 275.5 MOS/KG (273-304); Potassium 3.8 MMOL/L (3.5-5.1)
[2021-03-15] MEDS: INSULIN LISPRO 100 UNIT/ML SUBCUT SCH ×2 (07:27→11:34)
[2021-03-15] MEDS: ACETAMINOPHEN 325 MG TABLET PO PRN (08:49)
[2021-03-15] MEDS: DAPAGLIFLOZIN 10 MG TABLET PO SCH (08:49)
[2021-03-15] MEDS: carvediloL 3.125 MG TABLET PO SCH (08:49)
[2021-03-15] MEDS: GLIMEPIRIDE 2 MG TABLET PO SCH (08:49)
[2021-03-15] MEDS: ASPIRIN EC 81 MG TABLET PO SCH (08:49)
[2021-03-15] MEDS: PANTOPRAZOLE 40 MG TABLET PO SCH (08:50)
[2021-03-15] MEDS: CLORAZEPATE 3.75 MG TABLET PO SCH (08:50)
[2021-03-15] MEDS: CHOLECALCIFEROL 1,000 UNIT TABLET PO SCH (08:50)
[2021-03-15 10:04] VITALS: BP 120/77
[2021-03-15] MEDS: CHOLESTYRAMINE 4 GM PACK PO SCH (10:42)
== END 2021-03-15 12:15 | disposition home or self-care (01) | DRG 897 ==
LOC: N.ED 11:56 → N.EDINP 15:43 → SUATTDRO 15:43 → N.EDINP 20:47 → N.TELES 21:05
PROVIDERS: ADMIT Internal Medicine; ATTEND Internal Medicine

== ENCOUNTER 2021-07-09 14:19 | Inpatient (IN) ==
[2021-07-09] MEDS ORDERED: MAGNESIUM SULF RIDER 2 GM/50 ML PREMIX IV STA (15:10)
[2021-07-09] MEDS ORDERED: DILTIAZEM 50 MG/10 ML VIAL IV STA ×2 (15:10→15:52)
[2021-07-09] MEDS ORDERED: THIAMINE INJ 100 MG, FOLIC ACID INJ 1 MG, MAGNESIUM SULF INJ 2 GM, MULTIVITAMIN INJ 10 ... IV ONE (15:14)
[2021-07-09] MEDS: DILTIAZEM INJ 100 MG in SODIUM CHLORIDE 0.9% 100 ML IV SCH (15:30)
[2021-07-09 15:34] LABS: Basophils # 0.1 10*3/uL (0.0-0.2); Basophils % 0.7 % (0.0-0.8); Eosinophils # 0.1 10*3/uL (0.0-0.87); Hematocrit 47.2 VOL% (35.7-47.0); Hemoglobin 16.6 GM/DL (12.0-16.0); Immature Granulocytes % 0.1 %; Immature Granulocytes Absolute 0.01 #; Lymphocytes # 3.1 10*3/uL (1.4-4.0); Mean Corpuscular HGB Conc 35.2 GM/DL (32-36); Mean Platelet Volume 8.9 FL (9.6-12.0); Monocytes # 0.7 10*3/uL (0.11-0.8); Monocytes % 9.2 % (1.7-12.7); Platelet Count 280 T/CUMM (130-400); Red Blood Count 5.55 MC/CUMM (3.8-5.5); Red Cell Distribution Width 19.2 % (9.3-17.3); White Blood Count 7.4 T/CUMM (4-12)
[2021-07-09 15:47] LABS: PT Patient Result 10.7 SECS (10.5-12.0); Partial Thromboplastin Time 26.5 SECS (23.8-32.1)
[2021-07-09 15:52] LABS: Albumin 3.6 G/DL (3.4-5.0); Bilirubin,Total 0.5 MG/DL (0.20-1.00); Calcium 9.3 MG/DL (8.5-10.1); Osmolality,Calculated 288.3 MOS/KG (273-304); Potassium 4.2 MMOL/L (3.5-5.1); Total Protein 9.1 G/DL (6.4-8.2)
[2021-07-09 16:14] LABS: Free T4 (Free Thyroxine) 0.85 NG/DL (0.76-1.46); Thyroid Stimulating Hormone 0.448 uIU/ml (0.358-3.74)
[2021-07-09 16:20] LABS: Barbiturates Screen,Urine Negative (Negative); Benzodiazepines Screen,Urine Negative (Negative); Cannabinoid Screen,Urine Positive (Negative); Opiate Screen,Urine Negative (Negative); Phencyclidine Screen,Urine Negative (Negative)
[2021-07-09] MEDS ORDERED: METOPROLOL TARTRATE 5 MG/5 ML VIAL IV STA (16:23)
[2021-07-09] MEDS ORDERED: LORazepam 2 MG/1 ML VIAL IV STA (16:51)
[2021-07-09] MEDS ORDERED: GLUCAGON 1 MG VIAL IM PRN ×2 (17:31→18:21)
[2021-07-09] MEDS ORDERED: DEXTROSE 10% 250 ML BAG IV PRN (17:39)
[2021-07-09] MEDS ORDERED: DEXTROSE 50% 25 GM/50 ML VIAL IV PRN (18:21)
[2021-07-09] MEDS: ENOXAPARIN 40 MG/0.4 ML SYRINGE SUBCUT SCH (18:44)
[2021-07-09] MEDS: LORazepam 2 MG/1 ML VIAL IV PRN (21:00)
[2021-07-09] MEDS ORDERED: METOPROLOL TARTRATE 25 MG TABLET PO SCH (21:00)
[2021-07-09] MEDS: INSULIN REGULAR 100 UNIT/ML SUBCUT SCH (23:50)
[2021-07-10] MEDS: LORazepam 2 MG/1 ML VIAL IV PRN ×5 (00:53→20:27)
[2021-07-10 04:56] LABS: Basophils % 0.6 % (0.0-0.8); Eosinophils # 0.1 10*3/uL (0.0-0.87); Eosinophils % 1.8 % (0.00-10.9); Hematocrit 41.9 VOL% (35.7-47.0); Hemoglobin 14.5 GM/DL (12.0-16.0); Immature Granulocytes % 0.2 %; Immature Granulocytes Absolute 0.01 #; Lymphocytes # 1.8 10*3/uL (1.4-4.0); Lymphocytes % 35.7 % (21.3-54.2); Mean Corpuscular HGB Conc 34.6 GM/DL (32-36); Mean Corpuscular Volume 85.7 FL (87-102); Mean Platelet Volume 8.9 FL (9.6-12.0); Monocytes # 0.5 10*3/uL (0.11-0.8); Monocytes % 10.6 % (1.7-12.7); Neutrophils % 51.1 % (38.7-73.9); Platelet Count 195 T/CUMM (130-400); Red Blood Count 4.89 MC/CUMM (3.8-5.5); Red Cell Distribution Width 18.4 % (9.3-17.3)
[2021-07-10 05:41] LABS: Calcium 8.4 MG/DL (8.5-10.1); Osmolality,Calculated 279.5 MOS/KG (273-304); Potassium 3.4 MMOL/L (3.5-5.1)
[2021-07-10] MEDS ORDERED: POTASSIUM CHLORIDE 20 MEQ TABLET PO ONE (07:56)
[2021-07-10] MEDS: amLODIPine 5 MG TABLET PO SCH (08:39)
[2021-07-10] MEDS: MAGNESIUM CHLORIDE 64 MG TABLET PO SCH (08:39)
[2021-07-10] MEDS: ESCITALOPRAM 10 MG TABLET PO SCH (08:39)
[2021-07-10] MEDS: PANTOPRAZOLE 40 MG TABLET PO SCH (08:39)
[2021-07-10] MEDS: ASPIRIN EC 81 MG TABLET PO SCH (08:39)
[2021-07-10] MEDS: lisinopriL 20 MG TABLET PO SCH (08:39)
[2021-07-10] MEDS: METOPROLOL SUCCINATE XL 100 MG TABLET PO SCH (08:39)
[2021-07-10] MEDS: THIAMINE INJ 100 MG in SODIUM CHLORIDE 0.9% 1,000 ML IV SCH ×3 (08:40→22:41)
[2021-07-10] MEDS: INSULIN REGULAR 100 UNIT/ML SUBCUT SCH ×4 (08:46→22:23)
[2021-07-10] MEDS ORDERED: ASPIRIN EC 81 MG TABLET PO SCH (09:00)
[2021-07-10] MEDS ORDERED: PANTOPRAZOLE 40 MG TABLET PO SCH (09:00)
[2021-07-10] MEDS: cloNIDine 0.1 MG TABLET PO PRN (12:49)
[2021-07-10] MEDS: ONDANSETRON 4 MG/2 ML VIAL IV PRN (12:50)
[2021-07-10] MEDS: ENOXAPARIN 40 MG/0.4 ML SYRINGE SUBCUT SCH (17:28)
[2021-07-10] MEDS: ACETAMINOPHEN 325 MG TABLET PO PRN (20:27)
[2021-07-10] MEDS: POTASSIUM CHLORIDE 20 MEQ TABLET PO SCH (20:28)
[2021-07-11] MEDS: LORazepam 2 MG/1 ML VIAL IV PRN ×4 (01:49→22:13)
[2021-07-11] MEDS: THIAMINE INJ 100 MG in SODIUM CHLORIDE 0.9% 1,000 ML IV SCH (06:27)
[2021-07-11 06:50] LABS: Basophils % 0.9 % (0.0-0.8); Eosinophils # 0.2 10*3/uL (0.0-0.87); Eosinophils % 5.7 % (0.00-10.9); Hematocrit 37.2 VOL% (35.7-47.0); Hemoglobin 12.9 GM/DL (12.0-16.0); Lymphocytes # 1.4 10*3/uL (1.4-4.0); Lymphocytes % 39.4 % (21.3-54.2); Mean Corpuscular HGB Conc 34.7 GM/DL (32-36); Mean Corpuscular Volume 86.7 FL (87-102); Mean Platelet Volume 9.4 FL (9.6-12.0); Monocytes # 0.4 10*3/uL (0.11-0.8); Monocytes % 10.9 % (1.7-12.7); Neutrophils % 42.8 % (38.7-73.9); Platelet Count 158 T/CUMM (130-400); Red Blood Count 4.29 MC/CUMM (3.8-5.5); Red Cell Distribution Width 17.6 % (9.3-17.3); White Blood Count 3.5 T/CUMM (4-12)
[2021-07-11 07:19] LABS: Albumin 2.7 G/DL (3.4-5.0); Bilirubin,Total 0.7 MG/DL (0.20-1.00); Calcium 8.3 MG/DL (8.5-10.1); Osmolality,Calculated 277.5 MOS/KG (273-304); Phosphorous 2.8 MG/DL (2.5-4.9); Total Protein 6.8 G/DL (6.4-8.2)
[2021-07-11] MEDS: INSULIN REGULAR 100 UNIT/ML SUBCUT SCH ×4 (09:58→23:32)
[2021-07-11] MEDS: POTASSIUM CHLORIDE 20 MEQ TABLET PO SCH ×2 (09:59→21:12)
[2021-07-11] MEDS: lisinopriL 20 MG TABLET PO SCH (09:59)
[2021-07-11] MEDS: amLODIPine 5 MG TABLET PO SCH (09:59)
[2021-07-11] MEDS: ASPIRIN EC 81 MG TABLET PO SCH (09:59)
[2021-07-11] MEDS: FOLIC ACID 1 MG TABLET PO SCH (09:59)
[2021-07-11] MEDS: MAGNESIUM CHLORIDE 64 MG TABLET PO SCH (09:59)
[2021-07-11] MEDS: ESCITALOPRAM 10 MG TABLET PO SCH (09:59)
[2021-07-11] MEDS: METOPROLOL SUCCINATE XL 100 MG TABLET PO SCH (10:00)
[2021-07-11] MEDS: PANTOPRAZOLE 40 MG TABLET PO SCH (10:00)
[2021-07-11] MEDS: MULTIVITAMIN (CENTRUM) TABLET PO SCH (10:00)
[2021-07-11] MEDS: TOPIRAMATE 50 MG PO SCH (10:01)
[2021-07-11] MEDS: ENOXAPARIN 40 MG/0.4 ML SYRINGE SUBCUT SCH (17:53)
[2021-07-11] MEDS: ACETAMINOPHEN 325 MG TABLET PO PRN (21:12)
[2021-07-11] MEDS: cloNIDine 0.1 MG TABLET PO PRN (21:12)
[2021-07-12] MEDS: THIAMINE INJ 100 MG in SODIUM CHLORIDE 0.9% 1,000 ML IV SCH ×3 (00:07→06:12)
[2021-07-12] MEDS: LORazepam 2 MG/1 ML VIAL IV PRN ×2 (05:37→17:24)
[2021-07-12] MEDS: INSULIN REGULAR 100 UNIT/ML SUBCUT SCH ×4 (09:33→20:31)
[2021-07-12] MEDS: lisinopriL 20 MG TABLET PO SCH (09:38)
[2021-07-12] MEDS: cloNIDine 0.1 MG TABLET PO SCH ×2 (09:38→20:31)
[2021-07-12] MEDS: MAGNESIUM CHLORIDE 64 MG TABLET PO SCH (09:38)
[2021-07-12] MEDS: METOPROLOL SUCCINATE XL 100 MG TABLET PO SCH (09:38)
[2021-07-12] MEDS: ESCITALOPRAM 10 MG TABLET PO SCH (09:38)
[2021-07-12] MEDS: FOLIC ACID 1 MG TABLET PO SCH (09:38)
[2021-07-12] MEDS: POTASSIUM CHLORIDE 20 MEQ TABLET PO SCH ×2 (09:39→20:32)
[2021-07-12] MEDS: amLODIPine 5 MG TABLET PO SCH (09:39)
[2021-07-12] MEDS: PANTOPRAZOLE 40 MG TABLET PO SCH (09:39)
[2021-07-12] MEDS: THIAMINE 100 MG TABLET PO SCH (09:39)
[2021-07-12] MEDS: ASPIRIN EC 81 MG TABLET PO SCH (09:39)
[2021-07-12] MEDS: MULTIVITAMIN (CENTRUM) TABLET PO SCH (09:39)
[2021-07-12] MEDS: TOPIRAMATE 50 MG PO SCH (09:40)
[2021-07-12 17:22] LABS: Osmolality,Calculated 279.8 MOS/KG (273-304); Potassium 4.7 MMOL/L (3.5-5.1)
[2021-07-12] MEDS: ENOXAPARIN 40 MG/0.4 ML SYRINGE SUBCUT SCH (17:25)
[2021-07-12] MEDS: ACETAMINOPHEN 325 MG TABLET PO PRN (20:32)
[2021-07-13] MEDS: LORazepam 2 MG/1 ML VIAL IV PRN ×3 (01:06→21:35)
[2021-07-13 04:40] LABS: Basophils % 0.6 % (0.0-0.8); Eosinophils # 0.2 10*3/uL (0.0-0.87); Eosinophils % 5.1 % (0.00-10.9); Lymphocytes % 41.5 % (21.3-54.2); Mean Corpuscular HGB Conc 34.2 GM/DL (32-36); Mean Platelet Volume 9.2 FL (9.6-12.0); Monocytes # 0.5 10*3/uL (0.11-0.8); Neutrophils % 42.2 % (38.7-73.9); Platelet Count 154 T/CUMM (130-400); Red Blood Count 4.37 MC/CUMM (3.8-5.5); Red Cell Distribution Width 17.6 % (9.3-17.3); White Blood Count 4.7 T/CUMM (4-12)
[2021-07-13 05:17] LABS: Alanine Aminotransferase 65 U/L (13-56); Albumin 2.6 G/DL (3.4-5.0); Alkaline Phosphatase 106 U/L (45-117); Aspartate Amino Transferase 78 U/L (0-37); Bilirubin,Total < 0.39 MG/DL (0.20-1.00); Blood Urea Nitrogen 8 MG/DL (7-18); Calcium 9.3 MG/DL (8.5-10.1); Carbon Dioxide 27 MMOL/L (21-32); Chloride 107 MMOL/L (98-107); Estimated Glom Filtration Rate 152 ML/MIN; Glucose 139 MG/DL (74-106); Osmolality,Calculated 274.7 MOS/KG (273-304); Potassium 4.7 MMOL/L (3.5-5.1); Sodium 138 MMOL/L (136-145); Total Protein 6.8 G/DL (6.4-8.2)
[2021-07-13] MEDS ORDERED: chlordiazePOXIDE 25 MG CAPSULE PO SCH (09:00)
[2021-07-13] MEDS: ASPIRIN EC 81 MG TABLET PO SCH (09:28)
[2021-07-13] MEDS: lisinopriL 20 MG TABLET PO SCH (09:28)
[2021-07-13] MEDS: POTASSIUM CHLORIDE 20 MEQ TABLET PO SCH ×2 (09:28→20:05)
[2021-07-13] MEDS: MULTIVITAMIN (CENTRUM) TABLET PO SCH (09:28)
[2021-07-13] MEDS: amLODIPine 5 MG TABLET PO SCH (09:28)
[2021-07-13] MEDS: PANTOPRAZOLE 40 MG TABLET PO SCH (09:28)
[2021-07-13] MEDS: ESCITALOPRAM 10 MG TABLET PO SCH (09:28)
[2021-07-13] MEDS: METOPROLOL SUCCINATE XL 100 MG TABLET PO SCH (09:28)
[2021-07-13] MEDS: cloNIDine 0.1 MG TABLET PO SCH ×2 (09:28→20:05)
[2021-07-13] MEDS: MAGNESIUM CHLORIDE 64 MG TABLET PO SCH (09:28)
[2021-07-13] MEDS: FOLIC ACID 1 MG TABLET PO SCH (09:29)
[2021-07-13] MEDS: chlordiazePOXIDE 25 MG CAPSULE PO SCH ×3 (09:29→20:05)
[2021-07-13] MEDS: THIAMINE 100 MG TABLET PO SCH (09:29)
[2021-07-13] MEDS: INSULIN REGULAR 100 UNIT/ML SUBCUT SCH ×4 (09:32→22:15)
[2021-07-13] MEDS: TOPIRAMATE 50 MG PO SCH ×2 (09:33→10:14)
[2021-07-13] MEDS: DILTIAZEM INJ 100 MG in SODIUM CHLORIDE 0.9% 100 ML IV SCH ×2 (10:14→15:50)
[2021-07-13] MEDS: ENOXAPARIN 40 MG/0.4 ML SYRINGE SUBCUT SCH (17:02)
[2021-07-13] MEDS: ONDANSETRON 4 MG/2 ML VIAL IV PRN (18:05)
[2021-07-13] MEDS: carvediloL 25 MG TABLET PO SCH (20:05)
[2021-07-14] MEDS: LORazepam 2 MG/1 ML VIAL IV PRN ×4 (01:55→21:05)
[2021-07-14 05:33] LABS: Basophils % 0.6 % (0.0-0.8); Eosinophils # 0.2 10*3/uL (0.0-0.87); Eosinophils % 3.7 % (0.00-10.9); Hematocrit 38.6 VOL% (35.7-47.0); Hemoglobin 13.4 GM/DL (12.0-16.0); Immature Granulocytes % 0.4 %; Immature Granulocytes Absolute 0.02 #; Lymphocytes % 40.9 % (21.3-54.2); Mean Corpuscular HGB Conc 34.7 GM/DL (32-36); Mean Corpuscular Volume 86.9 FL (87-102); Mean Platelet Volume 9.6 FL (9.6-12.0); Monocytes # 0.6 10*3/uL (0.11-0.8); Monocytes % 11.6 % (1.7-12.7); Neutrophils % 42.8 % (38.7-73.9); Platelet Count 172 T/CUMM (130-400); Red Blood Count 4.44 MC/CUMM (3.8-5.5); Red Cell Distribution Width 17.6 % (9.3-17.3); White Blood Count 4.9 T/CUMM (4-12)
[2021-07-14] MEDS: lisinopriL 20 MG TABLET PO SCH (09:26)
[2021-07-14] MEDS: POTASSIUM CHLORIDE 20 MEQ TABLET PO SCH ×2 (09:26→20:05)
[2021-07-14] MEDS: amLODIPine 5 MG TABLET PO SCH (09:26)
[2021-07-14] MEDS: MAGNESIUM CHLORIDE 64 MG TABLET PO SCH (09:26)
[2021-07-14] MEDS: cloNIDine 0.1 MG TABLET PO SCH ×2 (09:26→20:05)
[2021-07-14] MEDS: carvediloL 25 MG TABLET PO SCH ×2 (09:26→20:05)
[2021-07-14] MEDS: MULTIVITAMIN (CENTRUM) TABLET PO SCH (09:26)
[2021-07-14] MEDS: PANTOPRAZOLE 40 MG TABLET PO SCH (09:27)
[2021-07-14] MEDS: FOLIC ACID 1 MG TABLET PO SCH (09:27)
[2021-07-14] MEDS: ASPIRIN EC 81 MG TABLET PO SCH (09:27)
[2021-07-14] MEDS: ESCITALOPRAM 10 MG TABLET PO SCH (09:27)
[2021-07-14] MEDS: chlordiazePOXIDE 25 MG CAPSULE PO SCH ×3 (09:27→20:05)
[2021-07-14] MEDS: THIAMINE 100 MG TABLET PO SCH (09:29)
[2021-07-14] MEDS: TOPIRAMATE 50 MG PO SCH (09:34)
[2021-07-14] MEDS: INSULIN REGULAR 100 UNIT/ML SUBCUT SCH ×4 (09:34→21:05)
[2021-07-14] MEDS: DILTIAZEM INJ 100 MG in SODIUM CHLORIDE 0.9% 100 ML IV SCH (16:32)
[2021-07-14] MEDS: ENOXAPARIN 40 MG/0.4 ML SYRINGE SUBCUT SCH (17:07)
[2021-07-15] MEDS: LORazepam 2 MG/1 ML VIAL IV PRN ×3 (02:15→20:51)
[2021-07-15 05:52] LABS: Basophils % 0.2 % (0.0-0.8); Eosinophils # 0.1 10*3/uL (0.0-0.87); Eosinophils % 2.9 % (0.00-10.9); Hematocrit 38.4 VOL% (35.7-47.0); Hemoglobin 13.2 GM/DL (12.0-16.0); Immature Granulocytes % 0.7 %; Immature Granulocytes Absolute 0.03 #; Lymphocytes # 1.9 10*3/uL (1.4-4.0); Lymphocytes % 41.9 % (21.3-54.2); Mean Corpuscular HGB Conc 34.4 GM/DL (32-36); Mean Corpuscular Volume 86.9 FL (87-102); Mean Platelet Volume 9.6 FL (9.6-12.0); Monocytes # 0.6 10*3/uL (0.11-0.8); Monocytes % 14.3 % (1.7-12.7); Platelet Count 171 T/CUMM (130-400); Red Blood Count 4.42 MC/CUMM (3.8-5.5); Red Cell Distribution Width 17.7 % (9.3-17.3); White Blood Count 4.4 T/CUMM (4-12)
[2021-07-15 06:08] LABS: Calcium 9.6 MG/DL (8.5-10.1); Osmolality,Calculated 279.5 MOS/KG (273-304); Potassium 4.5 MMOL/L (3.5-5.1)
[2021-07-15] MEDS: INSULIN REGULAR 100 UNIT/ML SUBCUT SCH ×4 (10:49→20:56)
[2021-07-15] MEDS: cloNIDine 0.1 MG TABLET PO SCH ×2 (10:52→20:56)
[2021-07-15] MEDS: carvediloL 25 MG TABLET PO SCH ×2 (10:52→20:54)
[2021-07-15] MEDS: POTASSIUM CHLORIDE 20 MEQ TABLET PO SCH ×2 (10:52→20:54)
[2021-07-15] MEDS: MAGNESIUM CHLORIDE 64 MG TABLET PO SCH (10:52)
[2021-07-15] MEDS: PANTOPRAZOLE 40 MG TABLET PO SCH (10:53)
[2021-07-15] MEDS: ASPIRIN EC 81 MG TABLET PO SCH (10:53)
[2021-07-15] MEDS: THIAMINE 100 MG TABLET PO SCH (10:53)
[2021-07-15] MEDS: chlordiazePOXIDE 25 MG CAPSULE PO SCH ×3 (10:53→20:54)
[2021-07-15] MEDS: amLODIPine 5 MG TABLET PO SCH (10:53)
[2021-07-15] MEDS: lisinopriL 20 MG TABLET PO SCH (10:53)
[2021-07-15] MEDS: MULTIVITAMIN (CENTRUM) TABLET PO SCH (10:53)
[2021-07-15] MEDS: FOLIC ACID 1 MG TABLET PO SCH (10:53)
[2021-07-15] MEDS: ESCITALOPRAM 10 MG TABLET PO SCH (10:59)
[2021-07-15] MEDS: TOPIRAMATE 50 MG PO SCH (11:00)
[2021-07-15] MEDS: ENOXAPARIN 40 MG/0.4 ML SYRINGE SUBCUT SCH (17:46)
[2021-07-16] MEDS: LORazepam 2 MG/1 ML VIAL IV PRN ×3 (02:47→20:44)
[2021-07-16] MEDS: INSULIN REGULAR 100 UNIT/ML SUBCUT SCH ×4 (09:32→20:44)
[2021-07-16] MEDS: chlordiazePOXIDE 25 MG CAPSULE PO SCH ×3 (09:32→20:43)
[2021-07-16] MEDS: cloNIDine 0.1 MG TABLET PO SCH ×2 (09:32→20:43)
[2021-07-16] MEDS: ASPIRIN EC 81 MG TABLET PO SCH (09:32)
[2021-07-16] MEDS: POTASSIUM CHLORIDE 20 MEQ TABLET PO SCH ×2 (09:33→20:44)
[2021-07-16] MEDS: lisinopriL 20 MG TABLET PO SCH (09:33)
[2021-07-16] MEDS: PANTOPRAZOLE 40 MG TABLET PO SCH (09:33)
[2021-07-16] MEDS: MULTIVITAMIN (CENTRUM) TABLET PO SCH (09:33)
[2021-07-16] MEDS: carvediloL 25 MG TABLET PO SCH ×2 (09:33→20:44)
[2021-07-16] MEDS: THIAMINE 100 MG TABLET PO SCH (09:33)
[2021-07-16] MEDS: ESCITALOPRAM 10 MG TABLET PO SCH (09:34)
[2021-07-16] MEDS: MAGNESIUM CHLORIDE 64 MG TABLET PO SCH (09:34)
[2021-07-16] MEDS: amLODIPine 5 MG TABLET PO SCH (09:34)
[2021-07-16] MEDS: FOLIC ACID 1 MG TABLET PO SCH (09:34)
[2021-07-16] MEDS: TOPIRAMATE 50 MG PO SCH (09:35)
[2021-07-16] MEDS: ENOXAPARIN 40 MG/0.4 ML SYRINGE SUBCUT SCH (17:32)
[2021-07-16] MEDS ORDERED: INSULIN GLARGINE 100 UNIT/ML SUBCUT SCH (21:00)
[2021-07-16] MEDS ORDERED: LORazepam 2 MG/1 ML VIAL IM PRN (23:08)
[2021-07-17 05:46] LABS: Calcium 9.4 MG/DL (8.5-10.1); Osmolality,Calculated 280.7 MOS/KG (273-304); Potassium 4.3 MMOL/L (3.5-5.1)
[2021-07-17] MEDS: chlordiazePOXIDE 25 MG CAPSULE PO SCH (08:51)
[2021-07-17] MEDS: cloNIDine 0.1 MG TABLET PO SCH (08:51)
[2021-07-17] MEDS: MULTIVITAMIN (CENTRUM) TABLET PO SCH (08:51)
[2021-07-17] MEDS: MAGNESIUM CHLORIDE 64 MG TABLET PO SCH (08:51)
[2021-07-17] MEDS: THIAMINE 100 MG TABLET PO SCH (08:51)
[2021-07-17] MEDS: ASPIRIN EC 81 MG TABLET PO SCH (08:51)
[2021-07-17] MEDS: PANTOPRAZOLE 40 MG TABLET PO SCH (08:52)
[2021-07-17] MEDS: amLODIPine 5 MG TABLET PO SCH (08:52)
[2021-07-17] MEDS: carvediloL 25 MG TABLET PO SCH (08:52)
[2021-07-17] MEDS: POTASSIUM CHLORIDE 20 MEQ TABLET PO SCH (08:52)
[2021-07-17] MEDS: INSULIN REGULAR 100 UNIT/ML SUBCUT SCH ×2 (08:53→12:56)
[2021-07-17] MEDS: ESCITALOPRAM 10 MG TABLET PO SCH (08:53)
[2021-07-17] MEDS: lisinopriL 20 MG TABLET PO SCH (08:53)
[2021-07-17] MEDS: FOLIC ACID 1 MG TABLET PO SCH (08:53)
[2021-07-17] MEDS: TOPIRAMATE 50 MG PO SCH (08:59)
[2021-07-17 14:42] VITALS: BP 105/71
[2021-07-17] MEDS ORDERED: chlordiazePOXIDE 25 MG CAPSULE PO SCH (15:00)
== END 2021-07-17 14:50 | DRG 897 ==
LOC: N.EDINP 14:19 → N.ED 14:19 → SUATTDRO 17:31 → N.TELES 20:01 → SUATTDRO 07-13 07:53
PROVIDERS: ADMIT Emergency Medicine; ATTEND Emergency Medicine

== ENCOUNTER 2021-11-26 21:00 | Observation (INO) ==
[2021-11-26 21:20] LABS: Basophils % 0.2 % (0.0-0.8); Hemoglobin 14.4 GM/DL (12.0-16.0); Immature Granulocytes % 0.5 %; Immature Granulocytes Absolute 0.06 #; Lymphocytes # 1.7 10*3/uL (1.4-4.0); Lymphocytes % 14.8 % (21.3-54.2); Mean Corpuscular Volume 84.7 FL (87-102); Mean Platelet Volume 9.8 FL (9.6-12.0); Monocytes # 1.8 10*3/uL (0.11-0.8); Monocytes % 15.2 % (1.7-12.7); Neutrophils % 69.3 % (38.7-73.9); Platelet Count 187 T/CUMM (130-400); Red Blood Count 4.72 MC/CUMM (3.8-5.5); Red Cell Distribution Width 15.3 % (9.3-17.3); White Blood Count 11.7 T/CUMM (4-12)
[2021-11-26] MEDS ORDERED: SODIUM CHLORIDE 0.9% 1,000 ML IV STA (21:28)
[2021-11-26] MEDS ORDERED: THIAMINE 200 MG/2 ML VIAL IV STA (21:29)
[2021-11-26] MEDS ORDERED: ONDANSETRON 4 MG/2 ML VIAL IV ONE (21:30)
[2021-11-26] MEDS ORDERED: HYDROmorphone 1 MG/1 ML SYRINGE IV STA (21:30)
[2021-11-26 21:31] LABS: INR 1.1; PT Patient Result 12.4 SECS (10.1-12.1); Partial Thromboplastin Time 27.9 SECS (23.7-32.9)
[2021-11-26 21:54] LABS: Albumin 2.6 G/DL (3.4-5.0); Bilirubin,Total 1.3 MG/DL (0.20-1.00); Calcium 7.9 MG/DL (8.5-10.1); Potassium 2.8 MMOL/L (3.5-5.1); Total Protein 7.7 G/DL (6.4-8.2)
[2021-11-26 22:25] LABS: Bacteria,Urine Many /HPF (Few); Mucus,Urine Occasional /LPF (Occasional); RBC,Urine 261 /HPF (0-4); Squamous Epithelial Cell,Urine Moderate /HPF (0-10)
[2021-11-26 22:26] LABS: Bilirubin,Urine Moderate mg/dL (Negative); Blood, Urine Trace mg/dL (Negative); Glucose,Urine (UA) Negative (Negative); Ketones,Urine 40 mg/dL (Negative); Nitrite,Urine Positive (Negative); Protein,Urine 100 mg/dL (Negative); Urine Appearance Clear (Clear); Urine Color Dark Yellow (Yellow); Urine Urobilinogen >= 8.0 eU/dL (<2.0)
[2021-11-26 22:38] LABS: Barbiturates Screen,Urine Negative (Negative); Benzodiazepines Screen,Urine Negative (Negative); Cannabinoid Screen,Urine Negative (Negative); Opiate Screen,Urine Negative (Negative); Phencyclidine Screen,Urine Negative (Negative)
[2021-11-26] MEDS ORDERED: POTASSIUM CHLORIDE 20 MEQ TABLET PO STA (23:30)
[2021-11-26] MEDS ORDERED: LORazepam 2 MG/1 ML VIAL IV STA (23:32)
[2021-11-26] MEDS ORDERED: cefTRIAXone 1,000 MG in SODIUM CHLORIDE 0.9% 100 ML IV STA (23:32)
[2021-11-27] MEDS ORDERED: ACETAMINOPHEN 325 MG TABLET PO PRN (00:59)
[2021-11-27] MEDS ORDERED: GLUCAGON 1 MG VIAL IM PRN (00:59)
[2021-11-27] MEDS ORDERED: hydrALAZINE 20 MG/1 ML VIAL IV PRN (00:59)
[2021-11-27] MEDS ORDERED: DEXTROSE 10% 250 ML BAG IV PRN (00:59)
[2021-11-27] MEDS ORDERED: ALUMINUM/MAGNES/SIMETH MAX STR 30 ML UDCUP PO PRN (00:59)
[2021-11-27] MEDS ORDERED: POTASSIUM CHLORIDE RIDER 10 MEQ/100 ML PREMIX IV PRN (00:59)
[2021-11-27] MEDS ORDERED: ONDANSETRON 4 MG/2 ML VIAL IV PRN (00:59)
[2021-11-27] MEDS ORDERED: MAGNESIUM SULF RIDER 4 GM/100 ML PREMIX IV PRN (00:59)
[2021-11-27] MEDS ORDERED: MAGNESIUM SULF RIDER 2 GM/50 ML PREMIX IV PRN (00:59)
[2021-11-27] MEDS ORDERED: HYDROmorphone 1 MG/1 ML SYRINGE IV PRN (01:22)
[2021-11-27] MEDS ORDERED: LABETALOL 20 MG/4 ML SYRINGE IV STA (01:32)
[2021-11-27] MEDS: ENOXAPARIN 40 MG/0.4 ML SYRINGE SUBCUT SCH ×2 (01:50→21:36)
[2021-11-27] MEDS: LORazepam 1 MG TABLET PO SCH ×6 (01:54→21:44)
[2021-11-27] MEDS: SODIUM CHLOR 0.9% KCL 20 MEQ 20 MEQ/1,000 ML BAG IV SCH ×3 (03:20→22:34)
[2021-11-27 06:26] LABS: Basophils % 0.2 % (0.0-0.8); Hematocrit 36.4 VOL% (35.7-47.0); Hemoglobin 12.6 GM/DL (12.0-16.0); Immature Granulocytes % 0.7 %; Immature Granulocytes Absolute 0.09 #; Lymphocytes # 1.9 10*3/uL (1.4-4.0); Lymphocytes % 15.8 % (21.3-54.2); Mean Corpuscular HGB Conc 34.6 GM/DL (32-36); Mean Corpuscular Volume 86.9 FL (87-102); Mean Platelet Volume 9.9 FL (9.6-12.0); Monocytes # 1.8 10*3/uL (0.11-0.8); Monocytes % 15.2 % (1.7-12.7); Neutrophils % 68.1 % (38.7-73.9); Platelet Count 176 T/CUMM (130-400); Red Blood Count 4.19 MC/CUMM (3.8-5.5); Red Cell Distribution Width 15.3 % (9.3-17.3); White Blood Count 12.1 T/CUMM (4-12)
[2021-11-27 06:54] LABS: Albumin 2.1 G/DL (3.4-5.0); Bilirubin,Direct 0.54 MG/DL (0.0-0.20); Bilirubin,Indirect 0.6 MG/DL (0.0-1.0); Bilirubin,Total 1.1 MG/DL (0.20-1.00); Total Protein 7.3 G/DL (6.4-8.2)
[2021-11-27 07:12] LABS: Calcium 7.7 MG/DL (8.5-10.1); Potassium 2.6 MMOL/L (3.5-5.1); Risk Ratio 4.77; Thyroid Stimulating Hormone 1.63 uIU/ml (0.358-3.74); VLDL Cholesterol 32.8 MG/DL
[2021-11-27] MEDS: POTASSIUM CHLORIDE 20 MEQ TABLET PO PRN ×2 (09:27→17:08)
[2021-11-27] MEDS: FOLIC ACID 1 MG TABLET PO SCH (09:27)
[2021-11-27] MEDS: METOPROLOL SUCCINATE XL 100 MG TABLET PO SCH (09:27)
[2021-11-27] MEDS: MULTIVITAMIN (CENTRUM) TABLET PO SCH (09:27)
[2021-11-27] MEDS: THIAMINE 100 MG TABLET PO SCH (09:27)
[2021-11-27] MEDS: cloNIDine 0.1 MG TABLET PO SCH ×2 (09:27→21:36)
[2021-11-27] MEDS: PANTOPRAZOLE 40 MG TABLET PO SCH (09:27)
[2021-11-27] MEDS: ASPIRIN EC 81 MG TABLET PO SCH (09:27)
[2021-11-27] MEDS: lisinopriL 20 MG TABLET PO SCH (09:27)
[2021-11-27] MEDS: DOCUSATE SODIUM 100 MG CAPSULE PO SCH ×2 (09:27→21:35)
[2021-11-27] MEDS: TOPIRAMATE 50 MG PO SCH (09:27)
[2021-11-27] MEDS: INSULIN REGULAR 100 UNIT/ML SUBCUT SCH ×4 (09:31→21:44)
[2021-11-27] MEDS: HYDROmorphone 1 MG/1 ML SYRINGE IV PRN ×3 (10:38→22:50)
[2021-11-27] MEDS: BENZTROPINE 1 MG TABLET PO SCH (21:35)
[2021-11-27] MEDS: cefTRIAXone 1,000 MG in SODIUM CHLORIDE 0.9% 100 ML IV SCH (21:36)
[2021-11-28] MEDS: LORazepam 1 MG TABLET PO SCH ×4 (01:58→19:22)
[2021-11-28] MEDS: HYDROmorphone 1 MG/1 ML SYRINGE IV PRN (05:05)
[2021-11-28 05:43] LABS: Basophils # 0.1 10*3/uL (0.0-0.2); Basophils % 0.4 % (0.0-0.8); Eosinophils # 0.1 10*3/uL (0.0-0.87); Eosinophils % 0.7 % (0.00-10.9); Hematocrit 33.9 VOL% (35.7-47.0); Hemoglobin 11.7 GM/DL (12.0-16.0); Immature Granulocytes % 0.8 %; Lymphocytes # 2.4 10*3/uL (1.4-4.0); Mean Corpuscular HGB Conc 34.5 GM/DL (32-36); Mean Corpuscular Volume 88.7 FL (87-102); Mean Platelet Volume 9.9 FL (9.6-12.0); Monocytes # 1.3 10*3/uL (0.11-0.8); Monocytes % 10.9 % (1.7-12.7); Neutrophils % 67.2 % (38.7-73.9); Platelet Count 182 T/CUMM (130-400); Red Blood Count 3.82 MC/CUMM (3.8-5.5); Red Cell Distribution Width 15.4 % (9.3-17.3)
[2021-11-28 06:07] LABS: Calcium 7.4 MG/DL (8.5-10.1); Osmolality,Calculated 271.8 MOS/KG (273-304); Potassium 3.4 MMOL/L (3.5-5.1)
[2021-11-28 07:06] LABS: Platelet Estimate Adequate
[2021-11-28] MEDS: INSULIN REGULAR 100 UNIT/ML SUBCUT SCH ×4 (08:30→21:09)
[2021-11-28] MEDS: MULTIVITAMIN (CENTRUM) TABLET PO SCH (08:30)
[2021-11-28] MEDS: FOLIC ACID 1 MG TABLET PO SCH (08:31)
[2021-11-28] MEDS: lisinopriL 20 MG TABLET PO SCH (08:31)
[2021-11-28] MEDS: POTASSIUM CHLORIDE 20 MEQ TABLET PO PRN ×3 (08:31→12:19)
[2021-11-28] MEDS: METOPROLOL SUCCINATE XL 100 MG TABLET PO SCH (08:31)
[2021-11-28] MEDS: cloNIDine 0.1 MG TABLET PO SCH ×2 (08:31→21:06)
[2021-11-28] MEDS: ASPIRIN EC 81 MG TABLET PO SCH (08:31)
[2021-11-28] MEDS: PANTOPRAZOLE 40 MG TABLET PO SCH (08:31)
[2021-11-28] MEDS: DOCUSATE SODIUM 100 MG CAPSULE PO SCH ×2 (08:31→21:06)
[2021-11-28] MEDS: THIAMINE 100 MG TABLET PO SCH (08:31)
[2021-11-28] MEDS: SODIUM CHLOR 0.9% KCL 20 MEQ 20 MEQ/1,000 ML BAG IV SCH (08:33)
[2021-11-28] MEDS: TOPIRAMATE 50 MG PO SCH (08:35)
[2021-11-28] MEDS: LORazepam 2 MG/1 ML VIAL IV PRN (16:07)
[2021-11-28] MEDS: BENZTROPINE 1 MG TABLET PO SCH (21:06)
[2021-11-28] MEDS: ENOXAPARIN 40 MG/0.4 ML SYRINGE SUBCUT SCH (21:09)
[2021-11-28] MEDS: cefTRIAXone 1,000 MG in SODIUM CHLORIDE 0.9% 100 ML IV SCH (21:12)
[2021-11-29] MEDS: LORazepam 1 MG TABLET PO SCH ×3 (01:57→17:38)
[2021-11-29] MEDS: SODIUM CHLOR 0.9% KCL 20 MEQ 20 MEQ/1,000 ML BAG IV SCH (04:13)
[2021-11-29 05:46] LABS: Basophils % 0.4 % (0.0-0.8); Eosinophils # 0.1 10*3/uL (0.0-0.87); Eosinophils % 1.5 % (0.00-10.9); Hemoglobin 11.6 GM/DL (12.0-16.0); Immature Granulocytes % 1.1 %; Immature Granulocytes Absolute 0.09 #; Lymphocytes # 1.5 10*3/uL (1.4-4.0); Lymphocytes % 17.7 % (21.3-54.2); Mean Corpuscular HGB Conc 34.1 GM/DL (32-36); Mean Corpuscular Volume 88.5 FL (87-102); Mean Platelet Volume 10.3 FL (9.6-12.0); Monocytes # 0.8 10*3/uL (0.11-0.8); Monocytes % 9.5 % (1.7-12.7); Neutrophils % 69.8 % (38.7-73.9); Platelet Count 256 T/CUMM (130-400); Red Blood Count 3.84 MC/CUMM (3.8-5.5); Red Cell Distribution Width 15.4 % (9.3-17.3); White Blood Count 8.5 T/CUMM (4-12)
[2021-11-29 06:09] LABS: Albumin 1.9 G/DL (3.4-5.0); Bilirubin,Total 0.8 MG/DL (0.20-1.00); Calcium 8.3 MG/DL (8.5-10.1); Osmolality,Calculated 273.7 MOS/KG (273-304); Potassium 4.2 MMOL/L (3.5-5.1); Total Protein 7.1 G/DL (6.4-8.2)
[2021-11-29 06:21] LABS: Platelet Estimate Normal
[2021-11-29] MEDS: INSULIN REGULAR 100 UNIT/ML SUBCUT SCH ×4 (08:24→20:38)
[2021-11-29] MEDS: MULTIVITAMIN (CENTRUM) TABLET PO SCH (09:22)
[2021-11-29] MEDS: THIAMINE 100 MG TABLET PO SCH (09:22)
[2021-11-29] MEDS: lisinopriL 20 MG TABLET PO SCH (09:22)
[2021-11-29] MEDS: ASPIRIN EC 81 MG TABLET PO SCH (09:22)
[2021-11-29] MEDS: PANTOPRAZOLE 40 MG TABLET PO SCH (09:22)
[2021-11-29] MEDS: cloNIDine 0.1 MG TABLET PO SCH ×2 (09:22→20:38)
[2021-11-29] MEDS: DOCUSATE SODIUM 100 MG CAPSULE PO SCH ×2 (09:22→20:38)
[2021-11-29] MEDS: FOLIC ACID 1 MG TABLET PO SCH (09:22)
[2021-11-29] MEDS: METOPROLOL SUCCINATE XL 100 MG TABLET PO SCH (09:22)
[2021-11-29] MEDS: TOPIRAMATE 50 MG PO SCH (10:48)
[2021-11-29] MEDS: ENOXAPARIN 40 MG/0.4 ML SYRINGE SUBCUT SCH (20:38)
[2021-11-29] MEDS: BENZTROPINE 1 MG TABLET PO SCH (20:38)
[2021-11-29] MEDS: cefTRIAXone 1,000 MG in SODIUM CHLORIDE 0.9% 100 ML IV SCH (20:39)
[2021-11-29] MEDS: LORazepam 2 MG/1 ML VIAL IV PRN (20:50)
[2021-11-30 06:31] LABS: Basophils # 0.1 10*3/uL (0.0-0.2); Basophils % 0.7 % (0.0-0.8); Eosinophils # 0.1 10*3/uL (0.0-0.87); Eosinophils % 1.6 % (0.00-10.9); Hematocrit 33.8 VOL% (35.7-47.0); Hemoglobin 11.7 GM/DL (12.0-16.0); Immature Granulocytes % 1.5 %; Immature Granulocytes Absolute 0.11 #; Lymphocytes # 1.7 10*3/uL (1.4-4.0); Lymphocytes % 23.3 % (21.3-54.2); Mean Corpuscular HGB Conc 34.6 GM/DL (32-36); Mean Platelet Volume 9.5 FL (9.6-12.0); Monocytes # 0.7 10*3/uL (0.11-0.8); Monocytes % 9.9 % (1.7-12.7); Platelet Count 338 T/CUMM (130-400); Red Blood Count 3.84 MC/CUMM (3.8-5.5); Red Cell Distribution Width 15.3 % (9.3-17.3); White Blood Count 7.4 T/CUMM (4-12)
[2021-11-30 06:48] LABS: Albumin 1.9 G/DL (3.4-5.0); Bilirubin,Total 0.5 MG/DL (0.20-1.00); Calcium 8.3 MG/DL (8.5-10.1); Osmolality,Calculated 274.5 MOS/KG (273-304); Total Protein 7.4 G/DL (6.4-8.2)
[2021-11-30 07:10] LABS: Anisocytosis 1+; Platelet Estimate Normal
[2021-11-30] MEDS: INSULIN REGULAR 100 UNIT/ML SUBCUT SCH ×2 (08:37→11:54)
[2021-11-30] MEDS: ASPIRIN EC 81 MG TABLET PO SCH (08:51)
[2021-11-30] MEDS: FOLIC ACID 1 MG TABLET PO SCH (08:51)
[2021-11-30] MEDS: PANTOPRAZOLE 40 MG TABLET PO SCH (08:51)
[2021-11-30] MEDS: cloNIDine 0.1 MG TABLET PO SCH (08:51)
[2021-11-30] MEDS: THIAMINE 100 MG TABLET PO SCH (08:52)
[2021-11-30] MEDS: lisinopriL 20 MG TABLET PO SCH (08:52)
[2021-11-30] MEDS: DOCUSATE SODIUM 100 MG CAPSULE PO SCH (08:52)
[2021-11-30] MEDS: TOPIRAMATE 50 MG PO SCH (08:52)
[2021-11-30] MEDS: MULTIVITAMIN (CENTRUM) TABLET PO SCH (08:52)
[2021-11-30] MEDS: METOPROLOL SUCCINATE XL 100 MG TABLET PO SCH (08:52)
[2021-11-30] MEDS ORDERED: AZITHROMYCIN INJ 500 MG in SODIUM CHLORIDE 0.9% 250 ML IV ONE (11:00)
[2021-11-30 11:35] VITALS: BP 169/98
== END 2021-11-30 13:45 | disposition home or self-care (01) ==
LOC: N.ED 21:00 → N.EDINP 11-27 00:59 → INTOOBSV 11-27 00:59 → N.EDINP 11-27 02:47 → N.5E 11-27 02:54
PROVIDERS: ADMIT Internal Medicine; ATTEND Internal Medicine